=== PATIENT | male | born 1970 | race African-American/Black ===

== ENCOUNTER 2017-01-13 12:07 | Inpatient (IN) ==
--- NOTE | 2017-01-13 14:23 | XRay Report ---
Exam: XR abdomen 2V Date: 01/13/2017 1:32 PM Comparison: None Indication: Abdominal pain Findings: Lung bases are unremarkable. The liver and spleen are unremarkable Renal contours are mostly obscured The bony structures are intact No obvious pneumoperitoneum Nonspecific GI pattern. Phleboliths in the true pelvis. Impression: 1. Nonspecific GI pattern PROCEDURE INTERPRETED AT [facility] DEPARTMENT OF RADIOLOGY Final Report Signed by: Dr. Xavier Rush
--- NOTE | 2017-01-13 14:26 | Emergency Department Note ---
ICarlie Emily, am scribing for, and in the presence of, Ferny Greenwood MD 13: 25. Krystyna Swan Charles R, MD, personally performed the services described in this documentation, ascribed by Terri Sexton in my presence, and it is both accurate and complete [phone] . Arrival - Arrival Chief Complaint: Weakness Stated Complaint: coming for blood/ER already knows per [facility] ED Nursing Triage Note: c/o abnormal labs. Had labs drawn this am, H&H 5&16, platelets 5. c/o generalized weakness. +dyspnea on exertion. Reports was given one unit of blood on thursday. Mode of Arrival: Ambulatory Limitations: No Limitations Source: Patient Time Seen by Provider: 01/13/17 12:59 - History of Present Illness HPI Narrative: Pt is a 46 y/o male who came to ED for further evaluation of abnormal labs from this morning. Pt had labs drawn this morning with H&H of 5 &16, and platelets 5. Pt c/o generalized weakness, AGUIRRE, dizziness, but denies SOB. Pt reports he was given one unit of blood on Thursday and had one shot of ETOH yesterday. However, pt was a former heavy drinker. PMHx of leukemia with providers and treatment in [place], Cirrhosis, remote kidney stones, HTN. Pt has low grade fever of 99.3 in ED. Onset (ago): hour(s) Consistency: constant Severity: moderate Severity scale (1-10): 6 Quality: other (weakness) Allergies/Adverse Reactions: Allergies Allergy/AdvReac Type Severity Reaction Status Date / Time No Known Allergies Allergy Verified 01/13/17 12:21 Home Medications: Home Medications Medication Instructions Recorded Confirmed Type Allopurinol 300 mg PO BID 04/23/16 12/18/16 History Folic Acid Tab 1 mg PO DAILY 04/23/16 12/18/16 History Imatinib Mesylate 600 mg PO DAILY 04/23/16 12/18/16 History Lisinopril 5 mg PO DAILY #30 tablet 08/20/16 12/18/16 Rx Tramadol HCl [Tramadol Tab] 50 mg PO Q6H PRN 08/20/16 12/18/16 History Hydroxyurea [Hydroxyurea] 500 mg PO QID 01/13/17 History Review of System - Review of System 12 point system: reviewed and no additional remarkable complaints except as stated - Review of System Constitutional: Present: weakness (generalized), other (abnormal labs). Absent : chills, fever Respiratory: Absent: respiratory distress Cardiovascular: Present: dyspnea on exertion. Absent: chest pain Gastrointestinal: Absent: abdominal pain Skin: Absent: rash Neurological: Present: other (dizziness) Medical,Surgical,& Family Hx - Medical History Cardio: History of: Hypertension Rheumatology: History of;: Gout Genitourinary: History of: Kidney Stones (Remote) Gastrointestinal: History of: Liver Problems (Cirrhosis) Hematology: History of: Blood Disorders (Acute myelogenous leukemia diagnosed March 2016) Other: History of: Cancer (TAKING IMATINIB BUT DOES NOT KNOW WHAT FOR) - Family History Family History: Reports;: Family Diabetes, Family Heart Disease - Social History Smoking Status: Never smoker Frequency of Alcohol Use: Rarely Type of Drug Use: None Marital Status: Single Lives With:: Alone Functional capacity: independent ambulation Exam Vital Signs: Vital Signs Temperature 99.3 F 01/13/17 13:18 Pulse Rate 114 H 01/13/17 13:18 Respiratory Rate 22 01/13/17 13:18 Blood Pressure 127/83 01/13/17 13:18 O2 Sat by Pulse Oximetry 100 01/13/17 12:16 - General General appearance: alert, in no apparent distress - Head Head exam: Present: atraumatic, normocephalic - Eye Eye exam: Present: PERRL, EOMI, other (pale conjunctiva) - ENT ENT exam: Present: mucous membranes moist. Absent: mucous membranes dry - Neck Neck exam: Present: full ROM, trachea midline - Chest Chest inspection: Present: symmetric chest wall rise - Respiratory Respiratory exam: Present: rales (bibasilar rales). Absent: normal lung sounds bilaterally, accessory muscle use, respiratory distress - Cardiovascular Cardiovascular exam: Present: tachycardia, normal heart sounds - Abdominal Exam Abdominal exam: Present: soft, distention (nodular liver). Absent: tenderness, guarding - Rectal Exam Rectal exam: Present: heme (+) stool - Extremities Exam Extremities exam: Present: full ROM, pedal edema (+1 in lower extremities), other (pale nail bed ). Absent: tenderness - Neurological Exam Neurological exam: Present: alert, oriented X3, CN II-XII intact. Absent: motor sensory deficit - Psychiatric Psychiatric exam: Present: normal affect, normal mood - Skin Skin exam: Present: warm, dry Course - Consultations Consultation #1: Hospitalist will admit patient Time: 14:54 Results - Labs CBC & BMP: 01/13/17 14:21 Lab Results: I have reviewed the patients labs Labs: Laboratory Tests 01/13/17 14:21 WBC 2.6 L RBC 1.62 L Hgb 5.2 L* Hct 15.7 L* RDW 17.9 H Plt Count 4 L* MPV 7.9 L Will % (Auto) 1.1 L Neut # (Auto) 1.2 L Lymph # (Auto) 1.3 L Will # (Auto) 0.0 L - Diagnostic Findings Procedure: Abdominal x-ray: report reviewed by me (Nonspecific GI pattern), Chest x-ray: report reviewed by me (No acute cardiopulmonary process. 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
--- NOTE | 2017-01-13 14:27 | XRay Report ---
Exam: XR chest 1V portable Indication: Abdominal pain Comparison study: Prior chest radiograph 12/18/2016 Findings: The heart, mediastinum and bony structures are stable from prior. Nonspecific density within the central heart shadow is favored to represent a small hiatal hernia, which appears similar to prior. There is no focal consolidation, pneumothorax or pleural effusion identified. Impression: No acute cardiopulmonary process. No significant change from prior. PROCEDURE INTERPRETED AT [facility] DEPARTMENT OF RADIOLOGY Final Report Signed by: Manoj Rico
[2017-01-13 14:32] LABS: Eosinophils # 0.1 10*3/uL (0.0-0.87); Immature Granulocytes % 0.8 %; Immature Granulocytes Absolute 0.02 #; Lymphocytes # 1.3 10*3/uL (1.4-4.0); Mean Corpuscular HGB Conc 33.1 GM/DL (32-36); Mean Corpuscular Hemoglobin 32 PG (27-34); Mean Corpuscular Volume 96.9 FL (87-102); Mean Platelet Volume 7.9 FL (9.6-12.0); Monocytes % 1.1 % (1.7-12.7); Neutrophils # 1.2 10*3/uL (1.4-7.4); Neutrophils % 45.1 % (38.7-73.9); Red Blood Count 1.62 MC/CUMM (3.8-5.5); Red Cell Distribution Width 17.9 % (9.3-17.3); White Blood Count 2.6 T/CUMM (4-12)
[2017-01-13 14:39] LABS: Hematocrit 15.7 VOL% (42.0-52.0); Hemoglobin 5.2 GM/DL (14.0-18.0); Platelet Count 4 T/CUMM (130-400)
[2017-01-13 14:54] LABS: Ammonia 32 UMOL/L (11-32)
[2017-01-13 14:57] LABS: Lactic Acid 1.2 MMOL/L (0.4-2.0)
[2017-01-13 15:11] LABS: Alanine Aminotransferase 11 U/L (16-61); Albumin 2.9 G/DL (3.4-5.0); Alkaline Phosphatase 84 U/L (45-117); Amylase 88 U/L (25-115); Aspartate Amino Transferase 13 U/L (0-37); Blood Urea Nitrogen 7 MG/DL (7-18); Calcium 8.4 MG/DL (8.5-10.1); Glucose 91 MG/DL (74-106); Magnesium 1.5 MG/DL (1.8-2.4); Osmolality,Calculated 276.4 MOS/KG (273-304); Potassium 3.4 MMOL/L (3.5-5.1); Sodium 140 MMOL/L (136-145); Total Protein 7.1 G/DL (6.4-8.3); Troponin I Only < 0.015 NG/ML (0.00-0.045)
[2017-01-13] MEDS ORDERED: SODIUM CHLORIDE 0.9% 250 ML IV PRN ×2 (15:14→15:55)
[2017-01-13] MEDS ORDERED: DOCUSATE SODIUM 100 MG CAPSULE PO PRN (15:16)
[2017-01-13] MEDS ORDERED: ONDANSETRON 4 MG/2 ML VIAL IV PRN (15:16)
[2017-01-13] MEDS ORDERED: LORazepam 2 MG/1 ML VIAL IV PRN (15:20)
[2017-01-13 15:31] LABS: Lymphocytes 47 % (20-55); Segmented Neutrophils 51 % (50-85); Total Cells Counted 100
[2017-01-13 15:36] LABS: Anisocytosis 1+; Macrocytosis 1+; Platelet Estimate Decreased; Polychromasia Slight
--- NOTE | 2017-01-13 15:38 | Hospitalist History & Physical ---
<Kelsey Dysonda - Last Filed: 01/13/17 15:56> Assessment and Plan (1) Acute blood loss anemia Status: Acute Assessment and plan: Hemoglobin and hematocrit noted at 5.2 and 15.7. The patient reports that he has chronic anemia. He reports that he was last transfused on Thursday of last week at [facility] in [place]. He was told that he needed an additional unit of blood however he failed to return for his additional transfusion. We will type and screen and transfuse 2 units packed red blood cells. We will recheck CBC in a.m. Current Visit: Yes (2) History of alcohol abuse Status: Acute Assessment and plan: The patient reports that he is a daily drinker. He reports that he was diagnosed with liver cirrhosis 5 years ago. Despite this diagnosis, the patient reports that he drinks "shots of vodka "daily. He denies encountering issues when he does not drink. However, due to the fact that he drinks daily we will start the alcohol withdrawal protocol. We will monitor closely during the clinical encounter for impending delirium tremors. Current Visit: Yes (3) Thrombocytopenia Status: Acute Assessment and plan: Platelet count noted at 4. Upon review of the patient's medical record, the last clinical encounter was noted on January 09, 2017 in which the patient's platelet count was noted at 19. Additional encounters on January 01 and January 05; in which the platelet count was noted at 126 and 62. The patient' s thrombocytopenia is chronic in nature. DVT prophylactics is contraindicated secondary to thrombocytopenia. We will give 2 pack platelets and recheck CBC in AM. Current Visit: Yes (4) CML (chronic myelocytic leukemia) Status: Acute Assessment and plan: The patient reports that he is generally followed in [facility] at [facility] by Dr. Salinas for his CML. He reports that he takes Gleevec 1 tablet daily. We will resume Gleevec as ordered. Current Visit: No History of Present Illness Chief complaint: Profound weakness History of present illness: This is a chronically ill 46-year-old male that presented to the ED at [facility] this afternoon for the evaluation of weakness. The patient has a long and complex medical history significant for hypertension, liver cirrhosis, alcohol abuse, gouty arthritis, renal calculi, and acute myelogenous leukemia. The patient reported no significant surgical history at the time of encounter. Apparently, the patient was notified by his primary care physician of some abnormal labs. He had been seen here by his oncologist Dr. Salinas for blood work. He returned home and received a call from his physician instructed him to present to the ED. The patient reported an onset of weakness 2 weeks prior to presentation. He was seen recently by his oncologist Dr. Salinas in [place] and given blood products on last week. He was instructed to return the next day for additional blood products however, the patient failed to return. In addition, the patient reported dyspnea upon exertion, dizziness, however denied shortness of breath. The patient was assessed at the time of ED presentation. The patient was noted to have a low-grade temperature of 99.3. Labs were obtained which were significant for white blood cell count at 2.6, hemoglobin 5.2, hematocrit 15.7, platelet count 4, potassium 3.4, creatinine 0.60, calcium 8.4, magnesium 1.5, ALT 11, ammonia 32, albumin 2.9, alkaline phosphatase 84, and lipase 194. Chest x-ray was unremarkable for the presence of any acute cardiopulmonary processes. Abdominal x-ray was significant for nonspecific GI pattern. After brief discussion with both Dr. Greenwood and Dr. Reyes, the patient will be admitted to the hospitalist service for continuation of care. Due to the severity of the patient's hematological status, the patient will be placed in the critical care setting. Home medications have been reviewed and reconciled. CODE STATUS discussed; patient is FULL CODE. Home Medications Medication Instructions Recorded Confirmed Type Allopurinol 300 mg PO BID 04/23/16 01/13/17 History Folic Acid Tab 1 mg PO QAM 04/23/16 01/13/17 History Imatinib Mesylate 600 mg PO QAM 04/23/16 01/13/17 History Lisinopril 5 mg PO DAILY #30 tablet 08/20/16 01/13/17 Rx Tramadol HCl [Tramadol Tab] 50 mg PO Q6H PRN 08/20/16 01/13/17 History Hydroxyurea [Hydroxyurea] 500 mg PO QID 01/13/17 01/13/17 History Allergies Allergy/AdvReac Type Severity Reaction Status Date / Time No Known Allergies Allergy Verified 01/13/17 12:21 Medical,Surgical,& Family Hx - Medical History Cardio: History of: Hypertension Rheumatology: History of;: Gout Genitourinary: History of: Kidney Stones (Remote) Gastrointestinal: History of: Liver Problems (Cirrhosis) Hematology: History of: Blood Disorders (Acute myelogenous leukemia diagnosed March 2016) Other: History of: Cancer (TAKING IMATINIB BUT DOES NOT KNOW WHAT FOR) - Family History Family History: Reports;: Family Diabetes, Family Heart Disease - Social History Smoking Status: Never smoker Have you smoked in the last 12 months: No Frequency of Alcohol Use: Frequently Type of Drug Use: None Marital Status: Single Lives With:: Alone Functional capacity: independent ambulation 12 point system: reviewed and no additional remarkable complaints except as stated Exam - Constitutional Vitals: Period Temp Pulse Resp BP Sys/Dunn Pulse Ox Last 24 Hr 99.3 F-99.3 F 114-114 22-22 127-127/83-88 100 General appearance: normal weight - Head Head exam: Present: normal inspection, normocephalic, atraumatic - Eye Eye exam: Present: EOMI, scleral icterus, other (Conjunctival jaundice noted) Pupils: Present: SAMUEL, normal accommodation - ENT ENT exam: Present: normal exam, normal external ear exam, normal oropharynx - Neck Neck exam: Present: normal inspection. Absent: lymphadenopathy, meningismus, tenderness, thyromegaly - Respiratory Respiratory exam: Present: clear to auscultation bilaterally. Absent: rales, rhonchi, stridor, wheezes - Cardiovascular Cardiovascular exam: Present: tachycardia. Absent: carotid bruit, diastolic murmur, gallop, rubs, systolic murmur - GI/Abdominal GI/Abdominal exam: Present: normal bowel sounds, distended. Absent: tenderness , rebound - Extremities Exam Extremities exam: Present: normal inspection, normal capillary refill, full ROM. Absent: edema - Back Exam Back exam: Present: normal inspection - Neurological Exam Neurological exam: Present: alert, oriented X3, CN II-XII intact - Psychiatric Psychiatric exam: Present: normal affect, normal mood - Skin Skin exam: Present: normal color, warm, dry Results - Labs CBC & BMP: 01/13/17 14:21 01/13/17 14:21 Lab Results: I have reviewed the past 24 hour labs Quality Measures - VTE Contraindication to Pharmacological VTE Prophylaxis: Thrombocytopenia <Albin Reyes - Last Filed: 01/13/17 16:10> Assessment and Plan (1) CML (chronic myelocytic leukemia) Status: Acute Assessment and plan: We will transfuse, and hope to discharge afterward. He will receive red cells and platelets. I am seeing this patient in colllaboration with the advanced family practice doctor. I performed the essential elements of the history and examination, and agree with the evaluation as entered, except as noted above. This note was completed using [employer] voice recognition software. 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 Current Visit: No History of Present Illness History of present illness: Mr. Emerson is a 46 year old male History is as described above. The patient was apparently diagnosed as having CML in [place]. He has been receiving appropriate therapy for this. He has been pancytopenic, and has been receiving transfusions intermittently. He received 1 unit of red cells in [place] on 01/09, and then could not get back over therefore follow-up transfusion. He reports exertional dyspnea. He has been having some dizziness. He also reports a history of alcoholic cirrhosis, and continues to consume vodka several times per week. Based on the peripheral smear, he does not appear to be in blast crisis at this time. Exam - Constitutional Vitals: Period Temp Pulse Resp BP Sys/Dunn Pulse Ox Last 24 Hr 98.0 F-99.3 F 98-114 22-22 127-144/83-94 100-100 The patient has a regular cardiac rhythm with a soft systolic murmur. His chest is fairly clear. His abdomen is protuberant without any obvious ascites. He has a few millimeters of edema bilaterally. I do not see any evidence of hemorrhage at this time. Results - Labs CBC & BMP: 01/13/17 14:21 01/13/17 14:21
[2017-01-13] MEDS ORDERED: MAGNESIUM SULF RIDER 2 GM in PREMIX 1 EACH IV STA ×2 (16:01→17:15)
[2017-01-13 17:07] LABS: Apearance,Urine CLOUDY (Clear); Bilirubin,Urine Negative (Negative); Blood, Urine Large mg/dL (Negative); Glucose,Urine (UA) Negative (Negative); Ketones,Urine Negative (Negative); Mucus,Urine Few /LPF (Occasional); Nitrite,Urine Negative (Negative); Protein,Urine 30 MG/DL; RBC,Urine 685 /HPF (0-4); Squamous Epithelial Cell,Urine Occasional /HPF (0-10); Urine Color Yellow (Yellow); Urine Specific Gravity 1.016 (1.001-1.035); WBC,Urine 6 /HPF (0-6)
[2017-01-13] MEDS: SODIUM CHLORIDE 0.9% 1,000 ML IV SCH (17:07)
[2017-01-13 17:14] LABS: Barbiturates Screen,Urine Negative (Negative); Benzodiazepines Screen,Urine Negative (Negative); Cannabinoid Screen,Urine Negative (Negative); Opiate Screen,Urine Negative (Negative); Phencyclidine Screen,Urine Negative (Negative)
[2017-01-13] MEDS: HYDROXYUREA 500 MG CAPSULE PO SCH ×2 (17:20→21:39)
[2017-01-13 19:23] LABS: Eosinophils # 0.1 10*3/uL (0.0-0.87); Eosinophils % 2.5 % (0.00-10.9); Hematocrit 15.6 VOL% (42.0-52.0); Immature Granulocytes % 0.4 %; Immature Granulocytes Absolute 0.01 #; Lymphocytes # 1.4 10*3/uL (1.4-4.0); Lymphocytes % 48.6 % (21.2-54.2); Mean Corpuscular Hemoglobin 33 PG (27-34); Mean Corpuscular Volume 95.7 FL (87-102); Monocytes % 1.4 % (1.7-12.7); Neutrophils # 1.3 10*3/uL (1.4-7.4); Neutrophils % 47.1 % (38.7-73.9); Platelet Count 4 T/CUMM (130-400); Red Blood Count 1.63 MC/CUMM (3.8-5.5); Red Cell Distribution Width 17.8 % (9.3-17.3); White Blood Count 2.8 T/CUMM (4-12)
[2017-01-13 19:28] LABS: Hemoglobin 5.3 GM/DL (14.0-18.0)
[2017-01-13 20:51] LABS: Lymphocytes 47 % (20-55); Segmented Neutrophils 51 % (50-85); Total Cells Counted 100
[2017-01-13 20:52] LABS: Anisocytosis 1+; Macrocytosis 1+; Platelet Estimate Decreased; Polychromasia Slight
[2017-01-13] MEDS: ALLOPURINOL 300 MG TABLET PO SCH (21:39)
[2017-01-14] MEDS: SODIUM CHLORIDE 0.9% 1,000 ML IV SCH ×2 (04:13→17:19)
[2017-01-14 05:55] LABS: Eosinophils # 0.1 10*3/uL (0.0-0.87); Eosinophils % 2.8 % (0.00-10.9); Hematocrit 18.7 VOL% (42.0-52.0); Immature Granulocytes % 0.5 %; Immature Granulocytes Absolute 0.01 #; Lymphocytes # 1.2 10*3/uL (1.4-4.0); Lymphocytes % 57.4 % (21.2-54.2); Mean Corpuscular HGB Conc 33.7 GM/DL (32-36); Mean Corpuscular Hemoglobin 31 PG (27-34); Mean Platelet Volume 13.5 FL (9.6-12.0); Monocytes % 0.9 % (1.7-12.7); Neutrophils # 0.8 10*3/uL (1.4-7.4); Neutrophils % 38.4 % (38.7-73.9); Red Blood Count 2.01 MC/CUMM (3.8-5.5); Red Cell Distribution Width 16.9 % (9.3-17.3); White Blood Count 2.2 T/CUMM (4-12)
[2017-01-14 06:01] LABS: Hemoglobin 6.3 GM/DL (14.0-18.0)
[2017-01-14 06:02] LABS: Platelet Count 18 T/CUMM (130-400)
[2017-01-14 06:11] LABS: INR 1.1
[2017-01-14 06:25] LABS: Eosinophils 4 % (0-10); Lymphocytes 51 % (20-55); Platelet Estimate Decreased; Segmented Neutrophils 45 % (50-85); Total Cells Counted 100
[2017-01-14 06:26] LABS: Hypochromasia 1+; Macrocytosis Slight; Ovalocytes Slight
[2017-01-14 06:29] LABS: Albumin 2.5 G/DL (3.4-5.0); Bilirubin,Total 1.4 MG/DL (0.2-1.0); Calcium 7.9 MG/DL (8.5-10.1); Magnesium 1.9 MG/DL (1.8-2.4); Osmolality,Calculated 274.5 MOS/KG (273-304); Potassium 3.3 MMOL/L (3.5-5.1); Total Protein 6.2 G/DL (6.4-8.3)
[2017-01-14] MEDS ORDERED: SODIUM CHLORIDE 0.9% 250 ML IV PRN (08:10)
--- NOTE | 2017-01-14 08:15 | Hospitalist Progress Note ---
Assessment and Plan (1) CML (chronic myelocytic leukemia) Status: Acute Assessment and plan: Impression: 1. CML with symptomatic anemia and thrombocytopenia Plan: Transfuse 1 more unit of red cells. Transfer out of ICU. Hope to discharge today or tomorrow. This note was completed using [employer] voice recognition software. There may be inspector production plastic parts errors as a result. Current Visit: No Hospitalist: Subjective Interval history: Follow-up CML with symptomatic anemia and thrombocytopenia. The patient says that he feels better. He has tolerated a diet. It appears that he has received 1 bag of platelets and 2 units of red cells. His hemoglobin has gone up to about 6. He will need 1 more unit of blood. He does not know his goal for transfusion. Exam - Constitutional Vitals: Period Temp Pulse Resp BP Sys/Dunn Pulse Ox Last 24 Hr 97.2 F-99.3 F 80-114 14-28 114-148/76-99 98-100 Vital signs are noted above. Heart is regular with no murmur. Chest is clear with no rales or wheezes. Abdomen is protuberant with only minimal tenderness. He has a millimeter or 2 of edema. He is awake and alert Results - Labs CBC & BMP: 01/14/17 05:16 01/14/17 05:16 Lab Results: I have reviewed the past 24 hour labs Quality Measures - VTE Contraindication to Pharmacological VTE Prophylaxis: Thrombocytopenia
[2017-01-14] MEDS: LISINOPRIL 5 MG TABLET PO SCH (08:20)
[2017-01-14] MEDS: THIAMINE 100 MG TABLET PO SCH (08:20)
[2017-01-14] MEDS: HYDROXYUREA 500 MG CAPSULE PO SCH ×4 (08:20→21:54)
[2017-01-14] MEDS: FOLIC ACID 1 MG TABLET PO SCH (08:20)
[2017-01-14] MEDS: PANTOPRAZOLE 40 MG TABLET PO SCH (08:20)
[2017-01-14] MEDS: ALLOPURINOL 300 MG TABLET PO SCH ×2 (08:39→21:54)
[2017-01-14] MEDS ORDERED: IMATINIB MESYLATE 600 MG PO SCH (09:00)
[2017-01-14] MEDS ORDERED: SUFentanil 250 MCG/5 ML AMP ONE ×2 (14:18→14:19)
[2017-01-14] MEDS ORDERED: ePHEDrine 50 MG/ML AMP ONE (14:19)
[2017-01-14] MEDS ORDERED: MIDAZOLAM 10 MG/2 ML VIAL ONE (14:19)
[2017-01-14 18:14] LABS: Hematocrit 24.4 VOL% (42.0-52.0); Hemoglobin 8.2 GM/DL (14.0-18.0)
[2017-01-15] MEDS: SODIUM CHLORIDE 0.9% 1,000 ML IV SCH ×2 (07:22→19:36)
--- NOTE | 2017-01-15 07:43 | Discharge Summary ---
<Montse Dyson - Last Filed: 01/15/17 07:34> Hospital Course - Hospital Course Hospital Course: This is a chronically ill 46-year-old male that presented to the ED at [facility] on the afternoon of January 13, 2017 for the evaluation of weakness. The patient reported a long and complex medical history significant for hypertension, liver cirrhosis, alcohol abuse, gouty arthritis, renal calculi, and acute myelogenous leukemia. The patient reported no significant surgical history at the time of encounter. Apparently, the patient was notified by his primary care physician of some abnormal labs. He had been seen here by his oncologist Dr. Salinas for blood work. He returned home and received a call from his physician instructed him to present to the ED. The patient reported an onset of weakness 2 weeks prior to presentation. He was seen recently by his oncologist Dr. Salinas in [place] and given blood products on last week. He was instructed to return the next day for additional blood products however, the patient failed to return. In addition, the patient reported dyspnea upon exertion, dizziness, however denied shortness of breath. The patient was assessed at the time of ED presentation. The patient was noted to have a low-grade temperature of 99.3. Labs were obtained which were significant for white blood cell count at 2.6, hemoglobin 5.2, hematocrit 15.7, platelet count 4, potassium 3.4, creatinine 0.60, calcium 8.4, magnesium 1.5, ALT 11, ammonia 32, albumin 2.9, alkaline phosphatase 84, and lipase 194. Chest x-ray was unremarkable for the presence of any acute cardiopulmonary processes. Abdominal x-ray was significant for nonspecific GI pattern. The patient was subsequently admitted to the critical care unit for continuation of care. The patient was placed in the critical care setting. Multiple blood products were transfused. The patient's condition gradually improved. The patient was transferred to the general medical surgical floor on January 14, 2017. The patient's condition is stable. The patient's hemoglobin and hematocrit are noted at 8.2/24.4. The patient has not experienced any significant overnight events. Today, we feel that he is indeed appropriate for discharge to follow- up with his primary care physician and oncologist as directed. I have seen and examined Mr Emerson and agree with his discahrge summary above. I have reconciled his meds and coordinate dcare with Dr Guardado. Mr Idania's discharge was held yesterday for another platelet transfusion. He is confused about what he is supposed to be taking for his CML following a BM biopsy last month at [place]. He will see Dr Salinas as scheduled this month. He will have blood drawn on Thursday as he usually does and he says he will go to [place] if he needs more transfusions so he can get to the bottom of what his treatment should be at this point. Time to discharge for planning, care coordination, medicine reconciliation, documentation is 38 minutes. Diagnosis - Discharge Diagnosis (1) Acute blood loss anemia Status: Acute (2) History of alcohol abuse Status: Acute (3) Thrombocytopenia Status: Acute (4) CML (chronic myelocytic leukemia) Status: Acute Specialty Discharge - Follow Up or Referrals Follow up with: Brad Almaraz [Other] (Follow up with your Oncologist in [place] as scheduled.) Discharge Plan - Discharge Data Disposition: Disch To Home/Self Care - Discharge Medications New Thiamine Tab [Vitamin B1 Tab] 100 mg PO DAILY tablet Continue Folic Acid Tab 1 mg PO QAM Allopurinol 300 mg PO BID Tramadol HCl [Tramadol Tab] 50 mg PO Q6H PRN PRN Reason: Pain Lisinopril 5 mg PO DAILY #30 tablet Hydroxyurea 500 mg PO QID Discontinued Imatinib Mesylate 600 mg PO QAM - Follow Up or Referral Follow Up: Brad Almaraz [Other] (Follow up with your Oncologist in [place] as scheduled.) - Forms/Instructions Exam - Constitutional Vitals: Period Temp Pulse Resp BP Sys/Dunn Pulse Ox Last 24 Hr 97.5 F-98.6 F 76-95 17-20 123-150/80-96 97-100 Discharge Results Procedures and tests throughout hospitalization: Pending Orders 01/13/17 Urine Culture Routine 01/13/17 08:26 Blood Culture Stat 01/13/17 16:23 MRSA Surveillence, Inf Control Routine Labs on day of discharge: Labs from last 24 hours 01/15/17 01/14/17 01/14/17 07:55 18:02 05:16 WBC 2.3 L RBC 2.57 L D Hgb 8.0 L 8.2 L D Hct 23.7 L 24.4 L MCV 92.2 MCH 31 MCHC 33.8 RDW 16.6 Plt Count 6 L* D Neut % (Auto) 46.4 Lymph % (Auto) 47.6 Rooks % (Auto) 0.4 L Eos % (Auto) 5.2 Baso % (Auto) 0.0 Neut # (Auto) 1.1 L Lymph # (Auto) 1.1 L Rooks # (Auto) 0.0 L Eos # (Auto) 0.1 Baso # (Auto) 0.0 Total Counted 100 Immature Gran % 0.4 Nucleated RBC % 0.0 Immature Gran # 0.01 Segmented Neutrophils 78 Lymphocytes 21 Monocytes 1 L Nucleated RBCs # 0.00 Platelet Estimate Decreased Immature Plt Fraction 2.0 Hypochromasia 1+ Macrocytosis 1+ Blood Type Cancelled Antibody Screen Cancelled Crossmatch See Detail Blood Bank Comment Cancelled Preliminary micro results at discharge 01/13/17 08:26 Blood Culture - Preliminary Blood No growth at 1 day 01/13/17 08:26 Blood Culture - Preliminary Blood No growth at 1 day 01/13/17 Unknown Urine Culture - Preliminary Urine,Clean Catch Gram Negative Rods Gram Positive Cocci DS: Provider Date of admission: 01/13/17 15:13 Primary care physician: . No PCP Attending physician on admission: Albin Reyes MD Consults: 01/13/17 16:43 Consult to Dietitian [CONS] Routine Reason for Dietitian: Dietary Consult Discharging clinician: Montse Dyson CNP <Sandhya Stiles - Last Filed: 01/16/17 11:07> Diagnosis - Discharge Diagnosis (1) Leukopenia Status: Acute (2) Anemia Status: Acute (3) Alcoholic cirrhosis Status: Acute (4) CML (chronic myelocytic leukemia) Status: Acute (5) Thrombocytopenia Status: Acute (6) Hematuria Status: Acute Discharge Plan - Discharge Data Condition at Discharge: Stable Discharge Diet: heart healthy Activity: resume usual activities as tolerated Exam - Constitutional General appearance: normal weight, no acute distress - Eye Eye exam: Present: EOMI. Absent: scleral icterus - Respiratory Respiratory exam: Present: clear to auscultation bilaterally - Cardiovascular Cardiovascular exam: Present: regular rate and rhythm - GI/Abdominal GI/Abdominal exam: Present: normal bowel sounds, soft. Absent: tenderness - Extremities Exam Extremities exam: Absent: edema
[2017-01-15 08:05] LABS: Eosinophils # 0.1 10*3/uL (0.0-0.87); Eosinophils % 5.2 % (0.00-10.9); Hematocrit 23.7 VOL% (42.0-52.0); Immature Granulocytes % 0.4 %; Immature Granulocytes Absolute 0.01 #; Lymphocytes # 1.1 10*3/uL (1.4-4.0); Lymphocytes % 47.6 % (21.2-54.2); Mean Corpuscular HGB Conc 33.8 GM/DL (32-36); Mean Corpuscular Hemoglobin 31 PG (27-34); Mean Corpuscular Volume 92.2 FL (87-102); Monocytes % 0.4 % (1.7-12.7); Neutrophils # 1.1 10*3/uL (1.4-7.4); Neutrophils % 46.4 % (38.7-73.9); Red Blood Count 2.57 MC/CUMM (3.8-5.5); Red Cell Distribution Width 16.6 % (9.3-17.3); White Blood Count 2.3 T/CUMM (4-12)
[2017-01-15 08:14] LABS: Platelet Count 6 T/CUMM (130-400)
[2017-01-15] MEDS ORDERED: SODIUM CHLORIDE 0.9% 250 ML IV PRN (08:26)
[2017-01-15 08:35] LABS: Hypochromasia 1+; Lymphocytes 21 % (20-55); Macrocytosis 1+; Platelet Estimate Decreased; Segmented Neutrophils 78 % (50-85); Total Cells Counted 100
[2017-01-15] MEDS: FOLIC ACID 1 MG TABLET PO SCH (08:35)
[2017-01-15] MEDS: PANTOPRAZOLE 40 MG TABLET PO SCH (08:35)
[2017-01-15] MEDS: HYDROXYUREA 500 MG CAPSULE PO SCH ×4 (08:35→21:52)
[2017-01-15] MEDS: LISINOPRIL 5 MG TABLET PO SCH (08:35)
[2017-01-15] MEDS: THIAMINE 100 MG TABLET PO SCH (08:35)
[2017-01-15] MEDS: ALLOPURINOL 300 MG TABLET PO SCH ×2 (08:36→21:52)
[2017-01-15] MEDS ORDERED: GLEEVEC 400 MG PO SCH (09:00)
--- NOTE | 2017-01-15 13:04 | Physician Query Form ---
CLICK EDIT DOCUMENT TO SELECT QUERY ANSWER --> OK --> SIGN Radha Parker RN Clinical Guidance Counselor W) [phone] (f) [phone] [email or web address]: Make your selection(s) from the choices in EACH section by typing an "x" and enter comments in the comment section. Please use your independent medical judgment in providing your response. This request does not imply that any particular answer is desired or expected. CLINICAL INDICATORS: (Providers should not edit this section) Based on documentation of serum WBC of 2.8, RBC 1.63, and PLT 4. Transfused 3 units PRBC, 1 unit PLT. 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" Based on the above, could you clarify the appropriate diagnosis, if significant , that supports the above abnormalities and additional evaluation, monitoring, and/or treatment rendered: ( x) Treated for pancytopenia ( ) NOT Treated for pancytopenia ( ) Other, please specify: ( ) Clinically unable to determine COMMENTS: PLEASE ALSO DOCUMENT RESPONSE IN PROGRESS NOTES AND/OR DISCHARGE SUMMARY Use of terms such as suspected, likely, or probable (associated with a specific diagnosis that is being evaluated, monitored, or treated as if it exists) are acceptable and can be restated in the discharge summary if not ruled out. MTDD
[2017-01-15] MEDS ORDERED: cefTRIAXone 1,000 MG in SODIUM CHLORIDE 0.9% 100 ML IV SCH (14:30)
--- NOTE | 2017-01-15 14:39 | Hospitalist Progress Note ---
Assessment and Plan (1) CML (chronic myelocytic leukemia) Status: Acute Assessment and plan: 1)CML with anemia leukopenia and thrombocytopenia- sent from his oncologists office in [place] for transfusions because counts low on check there. Dr Salinas has not called me back yet. Transfuse platelets again today. H&H improved to 8/24 after PRBCs. [facility]- it has developed over the last month or so. I discussed this with Dr Guardado who is conference interpreter. He recommended stopping Gleevec, checking fibrinogen and haptoglobin and continuing to try to get in touch with his oncologist at [facility]. Dr Salinas has not returned my call at this point. If they cannot/will not take him in transfer then we may need bone marrow biopsy in the morning to eval for transition to acute leukemia v drug effect. 2)hematuria- repeat UA and consult urology 3)UTI with GPC and GNR in urine- start ceftriaxone and ampicillin pending UCx results. Current Visit: No (2) Hematuria Status: Acute Current Visit: Yes (3) Alcoholic Status: Acute Current Visit: No (4) Alcoholic cirrhosis Status: Acute Current Visit: No (5) Thrombocytopenia Status: Acute Current Visit: Yes Hospitalist: Subjective Interval history: Mr Cage wants to go home but his platelets have fallen again to 6000, and he has GNR and GPC in his urine. also notable is the hematuria he had on UA on admission. He will stay tonight so he can get his platelets (it has taken them a while to get them and they have not yet been given). Antibiotics started, consult urology for hematuria. He denies pain, shortness of breath. No hallucinations or DT symptoms. Exam - Constitutional Vitals: Period Temp Pulse Resp BP Sys/Dunn Pulse Ox Last 24 Hr 97.5 F-98.6 F 76-97 18-20 130-150/80-96 97-100 General appearance: normal weight, no acute distress - Eye Eye exam: Present: EOMI. Absent: scleral icterus - Respiratory Respiratory exam: Present: clear to auscultation bilaterally - Cardiovascular Cardiovascular exam: Present: regular rate and rhythm - GI/Abdominal GI/Abdominal exam: Present: normal bowel sounds, soft. Absent: tenderness - Extremities Exam Extremities exam: Absent: edema Results - Labs CBC & BMP: 01/15/17 07:55 01/14/17 05:16 Lab Results: I have reviewed the past 24 hour labs Quality Measures - VTE Contraindication to Pharmacological VTE Prophylaxis: Thrombocytopenia Specialty Discharge - Follow Up or Referrals Follow up with: Brad Almaraz [Other] (Follow up with your Oncologist in [place] as scheduled.)
[2017-01-15] MEDS: AMPICILLIN INJ 500 MG in SODIUM CHLORIDE 0.9% 100 ML IV SCH ×2 (16:35→21:53)
[2017-01-15 17:19] LABS: Apearance,Urine Slightly Hazy (Clear); Bilirubin,Urine Negative (Negative); Blood, Urine Large mg/dL (Negative); Glucose,Urine (UA) Negative (Negative); Ketones,Urine Negative (Negative); Mucus,Urine Occasional /LPF (Occasional); Nitrite,Urine Negative (Negative); Protein,Urine Negative; RBC,Urine 1261 /HPF (0-4); Urine Color Yellow (Yellow); Urine Specific Gravity 1.016 (1.001-1.035); WBC,Urine 4 /HPF (0-6)
[2017-01-16] MEDS: AMPICILLIN INJ 500 MG in SODIUM CHLORIDE 0.9% 100 ML IV SCH ×2 (03:38→08:34)
[2017-01-16] MEDS: SODIUM CHLORIDE 0.9% 1,000 ML IV SCH (03:41)
[2017-01-16] MEDS: PANTOPRAZOLE 40 MG TABLET PO SCH (08:35)
[2017-01-16] MEDS: FOLIC ACID 1 MG TABLET PO SCH (08:35)
[2017-01-16] MEDS: ALLOPURINOL 300 MG TABLET PO SCH (08:35)
[2017-01-16] MEDS: THIAMINE 100 MG TABLET PO SCH (08:35)
[2017-01-16] MEDS: HYDROXYUREA 500 MG CAPSULE PO SCH (08:35)
[2017-01-16] MEDS: LISINOPRIL 5 MG TABLET PO SCH (08:36)
--- NOTE | 2017-01-16 08:38 | Oncology Consult Note ---
History of Present Illness History of present illness: Mr. Emerson is a 46 year old male with a history of CML dating back to the fall 2015 who is managed at [facility]. He is currently here with pancytopenia. He does not appear toxic and states he feels well. He states that [facility] has been aware that his blood counts have been low and he actually underwent a bone marrow biopsy approximately 4 weeks ago there. He does not know the results of this. He would like to go home. He is pancytopenic and his platelet count was 6 yesterday. He received a transfusion of platelets last night. I think he should be ready for discharge home today pending his CBC results. I told him to notify [facility] for follow-up. He continues to drink alcohol but states it is less than previous. He likely has some underlying cirrhosis which is also contributing to his pancytopenia. There is nothing to add from hematology here locally at this time. Home Medications Medication Instructions Recorded Confirmed Type Allopurinol 300 mg PO BID 04/23/16 01/13/17 History Folic Acid Tab 1 mg PO QAM 04/23/16 01/13/17 History Imatinib Mesylate 600 mg PO QAM 04/23/16 01/13/17 History Lisinopril 5 mg PO DAILY #30 tablet 08/20/16 01/13/17 Rx Tramadol HCl [Tramadol Tab] 50 mg PO Q6H PRN 08/20/16 01/13/17 History Hydroxyurea 500 mg PO QID 01/13/17 01/13/17 History Thiamine Tab [Vitamin B1 Tab] 100 mg PO DAILY tablet 01/15/17 Rx Allergies Allergy/AdvReac Type Severity Reaction Status Date / Time No Known Allergies Allergy Verified 01/13/17 12:21 Medical,Surgical,& Family Hx - Medical History Cardio: History of: Hypertension No history of: Aneurysm, Cardiac Dysrhythmia, Cerebrovascular Disease, Congenital Heart Disease, CHF, CAD, NH, Pacemaker, PVD, Valvular Heart Disease Psychological: No history of: Anxiety Disorders, Behavior Problems, Bipolar Disorder, Depression, Previous Suicide Attempt, Psychiatric/Substance Abuse Tx, Schizophrenia Endocrine: History of: Diabetes Mellitus (NIDDM) No history of: Dyslipidemia, Thyroid Disorder Rheumatology: History of;: Gout Respiratory: No history of: Asthma, Bronchitis, COPD, Intubation, Obstructive Sleep Apnea , Pulmonary Embolism, Pulmonary Hypertension, Pneumonia, Lung Cancer Genitourinary: History of: Kidney Stones (Remote) No history of: Bladder Problem Gastrointestinal: History of: GERD, Liver Problems (Cirrhosis) No history of: Clostridium Difficile, Crohn's Disease, Esophageal Varices, Gastrointestinal Bleed, Hemorrhoids, Hematochezia, Hepatitis, Pancreatitis, Gastrointestinal Cancer Hematology: History of: Anemia, Blood Disorders (Acute myelogenous leukemia diagnosed March 2016) No history of: Blood Transfusion Reaction, Sickle Cell Disease Reproductive: No histroy: Sexually Transmitted Disease Other: History of: Cancer (TAKING IMATINIB BUT DOES NOT KNOW WHAT FOR) No history of: Anesthesia Reactions - Surgical History HEENT Surgeries: Surgical HX of: Tonsilectomy & Adenoidectomy Abdominal Surgeries: Patient denies: Appendectomy, Cholecystectomy, Gastric Bypass Surgery, Hernia Repair Reproductive Surgeries: Patient denies;: Vasectomy - Family History Family History: Reports;: Family Diabetes, Family Heart Disease - Social History Smoking Status: Never smoker Frequency of Alcohol Use: Frequently Type of Drug Use: None Exam - Constitutional Vitals: Period Temp Pulse Resp BP Sys/Dunn Pulse Ox Last 24 Hr 97.6 F-100.3 F 81-98 18-20 129-152/73-96 96-99 Results - Labs CBC & BMP: 01/15/17 07:55 01/14/17 05:16 Quality Measures - VTE Contraindication to Pharmacological VTE Prophylaxis: Thrombocytopenia Specialty Discharge - Follow Up or Referrals Follow up with: Brad Almaraz [Other] (Follow up with your Oncologist in [place] as scheduled.)
[2017-01-16 08:46] LABS: Basophils % 0.5 % (0.0-0.8); Eosinophils # 0.1 10*3/uL (0.0-0.87); Eosinophils % 5.8 % (0.00-10.9); Hematocrit 23.1 VOL% (42.0-52.0); Hemoglobin 7.9 GM/DL (14.0-18.0); Immature Granulocytes % 1.5 %; Immature Granulocytes Absolute 0.03 #; Lymphocytes # 0.9 10*3/uL (1.4-4.0); Lymphocytes % 44.7 % (21.2-54.2); Mean Corpuscular HGB Conc 34.2 GM/DL (32-36); Mean Corpuscular Hemoglobin 32 PG (27-34); Mean Corpuscular Volume 92.4 FL (87-102); Mean Platelet Volume 9.7 FL (9.6-12.0); Monocytes % 0.5 % (1.7-12.7); Red Cell Distribution Width 16.2 % (9.3-17.3); White Blood Count 2.1 T/CUMM (4-12)
[2017-01-16 08:56] LABS: Platelet Count 16 T/CUMM (130-400)
[2017-01-16 09:25] LABS: Eosinophils 3 % (0-10); Hypochromasia 1+; Lymphocytes 33 % (20-55); Platelet Estimate Decreased; Segmented Neutrophils 64 % (50-85); Total Cells Counted 100
[2017-01-16 10:00] VITALS: BP 147/87
== END 2017-01-16 11:45 | disposition home or self-care (01) | DRG 691 ==
LOC: N.ED 12:07 → N.EDINP 15:13 → SUATTDRO 15:13 → N.CC 15:45 → N.4E 01-14 10:32
PROVIDERS: ADMIT Internal Medicine Geriatric Medicine; ATTEND Internal Medicine

== ENCOUNTER 2017-05-27 18:20 | Inpatient (IN) ==
[2017-05-27] MEDS ORDERED: SODIUM CHLORIDE 0.9% 1,000 ML IV STA (19:23)
[2017-05-27 19:34] LABS: Basophils % 0.3 % (0.0-0.8); Hemoglobin 8.3 GM/DL (14.0-18.0); Immature Granulocytes % 1.5 %; Immature Granulocytes Absolute 0.06 #; Lymphocytes # 1.5 10*3/uL (1.4-4.0); Lymphocytes % 37.5 % (21.2-54.2); Mean Corpuscular HGB Conc 33.2 GM/DL (32-36); Mean Corpuscular Hemoglobin 33 PG (27-34); Monocytes # 0.1 10*3/uL (0.11-0.8); Monocytes % 2.3 % (1.7-12.7); Neutrophils # 2.3 10*3/uL (1.4-7.4); Neutrophils % 58.4 % (38.7-73.9); Red Cell Distribution Width 15.3 % (9.3-17.3); White Blood Count 3.9 T/CUMM (4-12)
[2017-05-27 19:42] LABS: Platelet Count 4 T/CUMM (130-400)
[2017-05-27 19:54] LABS: INR 1.1; PT Patient Result 11.5 SECS; Partial Thromboplastin Time 30.8 SECS (0-40)
[2017-05-27 20:05] LABS: Albumin 3.5 G/DL (3.4-5.0); Bilirubin,Total 0.6 MG/DL (0.2-1.0); Osmolality,Calculated 263.7 MOS/KG (273-304); Potassium 2.9 MMOL/L (3.5-5.1); Total Protein 8.4 G/DL (6.4-8.3)
[2017-05-27 21:07] LABS: Band Neutrophils 1 % (0-10); Lymphocytes 35 % (20-55); Metamyelocytes 1 %; Platelet Estimate Decreased; Segmented Neutrophils 60 % (50-85); Total Cells Counted 100
[2017-05-27] MEDS ORDERED: cefTRIAXone 1,000 MG in SYRINGE 1 EACH IV SCH (23:00)
[2017-05-27] MEDS ORDERED: SODIUM CHLORIDE 0.9% 1,000 ML IV PRN (23:29)
[2017-05-27] MEDS ORDERED: ONDANSETRON 4 MG/2 ML VIAL IV PRN (23:29)
[2017-05-27] MEDS ORDERED: POTASSIUM CHLORIDE 20 MEQ TABLET PO ONE (23:40)
[2017-05-27] MEDS ORDERED: MAGNESIUM OXIDE 400 MG TABLET PO ONE (23:40)
[2017-05-28] MEDS: SODIUM CHLOR 0.9% KCL 40 MEQ 40 MEQ/1,000 ML BAG IV SCH ×3 (01:02→18:41)
[2017-05-28 03:04] LABS: Basophils % 0.3 % (0.0-0.8); Hematocrit 20.2 VOL% (42.0-52.0); Hemoglobin 6.6 GM/DL (14.0-18.0); Immature Granulocytes % 1.5 %; Immature Granulocytes Absolute 0.05 #; Lymphocytes # 1.2 10*3/uL (1.4-4.0); Lymphocytes % 36.1 % (21.2-54.2); Mean Corpuscular HGB Conc 32.7 GM/DL (32-36); Mean Corpuscular Hemoglobin 33 PG (27-34); Mean Platelet Volume 11.3 FL (9.6-12.0); Monocytes # 0.1 10*3/uL (0.11-0.8); Monocytes % 2.4 % (1.7-12.7); Neutrophils % 59.7 % (38.7-73.9); Red Cell Distribution Width 15.5 % (9.3-17.3); White Blood Count 3.3 T/CUMM (4-12)
[2017-05-28 03:12] LABS: Platelet Count 60 T/CUMM (130-400)
[2017-05-28 03:29] LABS: Calcium 8.5 MG/DL (8.5-10.1); Osmolality,Calculated 267.4 MOS/KG (273-304); Potassium 3.1 MMOL/L (3.5-5.1)
[2017-05-28 03:46] LABS: Band Neutrophils 4 % (0-10); Lymphocytes 39 % (20-55); Metamyelocytes 2 %; Segmented Neutrophils 53 % (50-85); Total Cells Counted 100
[2017-05-28 03:48] LABS: Hypochromasia 1+; Platelet Estimate Decreased
[2017-05-28] MEDS ORDERED: SODIUM CHLORIDE 0.9% 1,000 ML IV PRN (09:26)
[2017-05-28] MEDS ORDERED: MAGNESIUM SULF RIDER 4 GM in PREMIX 1 EACH IV ONE (09:28)
[2017-05-28] MEDS: ACETAMINOPHEN 325 MG TABLET PO PRN (17:09)
[2017-05-28] MEDS: MEROPENEM 1,000 MG in SYRINGE 1 EACH IV SCH (18:58)
[2017-05-28 21:20] LABS: Apearance,Urine CLEAR (Clear); Bilirubin,Urine Negative (Negative); Blood, Urine Moderate mg/dL (Negative); Glucose,Urine (UA) Negative (Negative); Ketones,Urine Negative (Negative); Mucus,Urine Occasional /LPF (Occasional); Nitrite,Urine Negative (Negative); Protein,Urine Negative; RBC,Urine 40 /HPF (0-4); Urine Color Yellow (Yellow); Urine Specific Gravity 1.012 (1.001-1.035); WBC,Urine 2 /HPF (0-6)
[2017-05-28] MEDS: ALLOPURINOL 300 MG TABLET PO SCH (21:56)
[2017-05-29] MEDS: MEROPENEM 1,000 MG in SYRINGE 1 EACH IV SCH ×3 (01:25→17:09)
[2017-05-29] MEDS: ACETAMINOPHEN 325 MG TABLET PO PRN ×2 (03:29→11:47)
[2017-05-29] MEDS: SODIUM CHLOR 0.9% KCL 40 MEQ 40 MEQ/1,000 ML BAG IV SCH ×3 (05:45→17:09)
[2017-05-29 06:48] LABS: Basophils % 0.4 % (0.0-0.8); Eosinophils % 0.4 % (0.00-10.9); Hematocrit 25.1 VOL% (42.0-52.0); Immature Granulocytes % 0.9 %; Immature Granulocytes Absolute 0.02 #; Lymphocytes # 0.8 10*3/uL (1.4-4.0); Mean Corpuscular HGB Conc 33.1 GM/DL (32-36); Mean Corpuscular Hemoglobin 32 PG (27-34); Mean Corpuscular Volume 97.7 FL (87-102); Mean Platelet Volume 11.8 FL (9.6-12.0); Monocytes # 0.1 10*3/uL (0.11-0.8); Monocytes % 2.6 % (1.7-12.7); Neutrophils # 1.4 10*3/uL (1.4-7.4); Neutrophils % 62.7 % (38.7-73.9); Red Blood Count 2.57 MC/CUMM (3.8-5.5); Red Cell Distribution Width 17.2 % (9.3-17.3); White Blood Count 2.3 T/CUMM (4-12)
[2017-05-29 06:58] LABS: Hemoglobin 8.3 GM/DL (14.0-18.0)
[2017-05-29 07:00] LABS: Platelet Count 17 T/CUMM (130-400)
[2017-05-29 07:12] LABS: Calcium 8.4 MG/DL (8.5-10.1); Osmolality,Calculated 267.1 MOS/KG (273-304); Potassium 4.1 MMOL/L (3.5-5.1)
[2017-05-29 07:15] LABS: Eosinophils 1 % (0-10); Hypochromasia 1+; Lymphocytes 32 % (20-55); Ovalocytes Slight; Platelet Estimate Decreased; Segmented Neutrophils 64 % (50-85); Total Cells Counted 100
[2017-05-29] MEDS: BENZOCAINE 20% SPRAY 57 GM CAN TOP PRN ×2 (09:21→17:12)
[2017-05-29] MEDS: ALLOPURINOL 300 MG TABLET PO SCH ×2 (09:22→20:33)
[2017-05-29] MEDS ORDERED: SODIUM CHLORIDE 0.9% 1,000 ML IV PRN (09:36)
[2017-05-30] MEDS: SODIUM CHLOR 0.9% KCL 40 MEQ 40 MEQ/1,000 ML BAG IV SCH ×3 (02:34→11:14)
[2017-05-30] MEDS: MEROPENEM 1,000 MG in SYRINGE 1 EACH IV SCH ×3 (02:35→19:05)
[2017-05-30 05:48] LABS: Eosinophils % 0.6 % (0.00-10.9); Hematocrit 23.2 VOL% (42.0-52.0); Hemoglobin 7.8 GM/DL (14.0-18.0); Immature Granulocytes % 1.2 %; Immature Granulocytes Absolute 0.02 #; Lymphocytes # 0.6 10*3/uL (1.4-4.0); Mean Corpuscular HGB Conc 33.6 GM/DL (32-36); Mean Corpuscular Hemoglobin 32 PG (27-34); Mean Corpuscular Volume 95.9 FL (87-102); Mean Platelet Volume 9.9 FL (9.6-12.0); Monocytes % 2.3 % (1.7-12.7); Neutrophils % 59.9 % (38.7-73.9); Red Blood Count 2.42 MC/CUMM (3.8-5.5); Red Cell Distribution Width 16.5 % (9.3-17.3); White Blood Count 1.7 T/CUMM (4-12)
[2017-05-30 05:56] LABS: Platelet Count 39 T/CUMM (130-400)
[2017-05-30 06:09] LABS: PT Patient Result 10.9 SECS
[2017-05-30 06:25] LABS: Calcium 8.7 MG/DL (8.5-10.1); Osmolality,Calculated 265.2 MOS/KG (273-304); Potassium 4.6 MMOL/L (3.5-5.1)
[2017-05-30 07:17] LABS: Band Neutrophils 1 % (0-10); Lymphocytes 41 % (20-55); Platelet Estimate Decreased; Segmented Neutrophils 55 % (50-85); Total Cells Counted 100
[2017-05-30] MEDS: ALLOPURINOL 300 MG TABLET PO SCH (08:25)
[2017-05-30] MEDS: PANTOPRAZOLE 40 MG VIAL IV SCH (08:25)
[2017-05-30] MEDS: ALLOPURINOL 100 MG TABLET PO SCH (09:41)
[2017-05-31] MEDS: MEROPENEM 1,000 MG in SYRINGE 1 EACH IV SCH ×2 (02:50→09:23)
[2017-05-31] MEDS: ALLOPURINOL 100 MG TABLET PO SCH (09:23)
[2017-05-31] MEDS: PANTOPRAZOLE 40 MG VIAL IV SCH (09:23)
[2017-05-31 11:02] LABS: Eosinophils % 0.4 % (0.00-10.9); Hematocrit 25.7 VOL% (42.0-52.0); Hemoglobin 8.8 GM/DL (14.0-18.0); Immature Granulocytes % 1.2 %; Immature Granulocytes Absolute 0.03 #; Lymphocytes # 0.7 10*3/uL (1.4-4.0); Lymphocytes % 29.7 % (21.2-54.2); Mean Corpuscular HGB Conc 34.2 GM/DL (32-36); Mean Corpuscular Hemoglobin 33 PG (27-34); Mean Corpuscular Volume 94.8 FL (87-102); Mean Platelet Volume 11.3 FL (9.6-12.0); Monocytes % 1.6 % (1.7-12.7); Neutrophils # 1.7 10*3/uL (1.4-7.4); Neutrophils % 67.1 % (38.7-73.9); Red Blood Count 2.71 MC/CUMM (3.8-5.5); Red Cell Distribution Width 16.2 % (9.3-17.3); White Blood Count 2.5 T/CUMM (4-12)
[2017-05-31 11:07] LABS: Platelet Count 22 T/CUMM (130-400)
[2017-05-31 11:37] LABS: Band Neutrophils 2 % (0-10); Lymphocytes 28 % (20-55); Segmented Neutrophils 69 % (50-85); Total Cells Counted 100
[2017-05-31 11:40] LABS: Hypochromasia 1+
[2017-05-31 11:41] LABS: Microcytosis 1+; Platelet Estimate Decreased
[2017-05-31] MEDS ORDERED: traMADol 50 MG TABLET PO PRN (12:14)
[2017-06-01 05:50] LABS: Basophils % 0.4 % (0.0-0.8); Eosinophils % 0.4 % (0.00-10.9); Hematocrit 23.4 VOL% (42.0-52.0); Hemoglobin 8.1 GM/DL (14.0-18.0); Immature Granulocytes % 1.1 %; Immature Granulocytes Absolute 0.03 #; Lymphocytes # 0.9 10*3/uL (1.4-4.0); Lymphocytes % 34.6 % (21.2-54.2); Mean Corpuscular HGB Conc 34.6 GM/DL (32-36); Mean Corpuscular Hemoglobin 33 PG (27-34); Mean Platelet Volume 9.4 FL (9.6-12.0); Monocytes # 0.1 10*3/uL (0.11-0.8); Monocytes % 2.3 % (1.7-12.7); Neutrophils # 1.6 10*3/uL (1.4-7.4); Neutrophils % 61.2 % (38.7-73.9); Red Blood Count 2.49 MC/CUMM (3.8-5.5); Red Cell Distribution Width 15.9 % (9.3-17.3); White Blood Count 2.6 T/CUMM (4-12)
[2017-06-01 05:53] LABS: Platelet Count 12 T/CUMM (130-400)
[2017-06-01 06:13] LABS: Calcium 8.8 MG/DL (8.5-10.1); Osmolality,Calculated 264.4 MOS/KG (273-304); Potassium 4.2 MMOL/L (3.5-5.1)
[2017-06-01 07:10] LABS: Hypochromasia 1+; Lymphocytes 38 % (20-55); Ovalocytes Slight; Platelet Estimate Decreased; Segmented Neutrophils 59 % (50-85); Total Cells Counted 100
[2017-06-01 07:11] LABS: Microcytosis 1+
[2017-06-01] MEDS: ALLOPURINOL 100 MG TABLET PO SCH (08:49)
[2017-06-01] MEDS: PANTOPRAZOLE 40 MG VIAL IV SCH (08:49)
[2017-06-01] MEDS ORDERED: SODIUM CHLORIDE 0.9% 1,000 ML IV PRN (10:10)
[2017-06-01] MEDS: LEVOFLOXACIN 750 MG TABLET PO SCH (11:00)
[2017-06-01] MEDS: ACETAMINOPHEN 325 MG TABLET PO PRN (14:57)
[2017-06-02 04:50] LABS: Hematocrit 22.1 VOL% (42.0-52.0); Hemoglobin 7.4 GM/DL (14.0-18.0); Immature Granulocytes % 1.1 %; Immature Granulocytes Absolute 0.03 #; Lymphocytes % 37.7 % (21.2-54.2); Mean Corpuscular HGB Conc 33.5 GM/DL (32-36); Mean Corpuscular Hemoglobin 33 PG (27-34); Mean Corpuscular Volume 97.4 FL (87-102); Mean Platelet Volume 9.5 FL (9.6-12.0); Monocytes # 0.1 10*3/uL (0.11-0.8); Monocytes % 2.6 % (1.7-12.7); Neutrophils # 1.6 10*3/uL (1.4-7.4); Neutrophils % 58.6 % (38.7-73.9); Red Blood Count 2.27 MC/CUMM (3.8-5.5); Red Cell Distribution Width 15.9 % (9.3-17.3); White Blood Count 2.7 T/CUMM (4-12)
[2017-06-02 05:50] LABS: Platelet Count 23 T/CUMM (130-400)
[2017-06-02 06:56] LABS: Band Neutrophils 2 % (0-10); Lymphocytes 38 % (20-55); Platelet Estimate Decreased; Segmented Neutrophils 57 % (50-85); Total Cells Counted 100
[2017-06-02] MEDS: PANTOPRAZOLE 40 MG VIAL IV SCH (08:59)
[2017-06-02] MEDS: ALLOPURINOL 100 MG TABLET PO SCH (08:59)
[2017-06-02] MEDS: LEVOFLOXACIN 750 MG TABLET PO SCH (08:59)
[2017-06-02 12:09] VITALS: BP 109/71
== END 2017-06-02 12:13 | disposition home or self-care (01) | DRG 660 ==
LOC: N.ED 18:20 → N.EDINP 20:19 → SUATTDRO 20:19 → N.4E 20:51
PROVIDERS: ADMIT Internal Medicine; ATTEND Internal Medicine

== ENCOUNTER 2019-04-21 11:17 | Inpatient (IN) ==
[2019-04-21] MEDS ORDERED: SODIUM CHLORIDE 0.9% 1,000 ML IV STA (11:42)
[2019-04-21 12:35] LABS: Basophils # 0.1 10*3/uL (0.0-0.2); Basophils % 0.2 % (0.0-0.8); Eosinophils % 0.1 % (0.00-10.9); Hematocrit 25.6 VOL% (42.0-52.0); Immature Granulocytes % 2.4 %; Immature Granulocytes Absolute 0.61 #; Lymphocytes # 0.8 10*3/uL (1.4-4.0); Lymphocytes % 3.2 % (21.2-54.2); Mean Corpuscular HGB Conc 35.2 GM/DL (32-36); Mean Corpuscular Volume 104.1 FL (87-102); Mean Platelet Volume 11.2 FL (9.6-12.0); Monocytes % 0.4 % (1.7-12.7); NRBC # 0.13 10*3/uL; Neutrophils % 93.7 % (38.7-73.9); Platelet Count 304 T/CUMM (130-400); Red Blood Count 2.46 MC/CUMM (3.8-5.5); Red Cell Distribution Width 15.9 % (9.3-17.3); White Blood Count 25.1 T/CUMM (4-12)
[2019-04-21 12:43] LABS: INR 1.1; PT Patient Result 12.1 SECS (9.6-12.2)
[2019-04-21 12:56] LABS: Albumin 2.4 G/DL (3.4-5.0); Bilirubin,Total 0.5 MG/DL (0.2-1.0); Calcium 8.8 MG/DL (8.5-10.1); Osmolality,Calculated 277.7 MOS/KG (273-304); Total Protein 7.7 G/DL (6.4-8.3)
[2019-04-21 12:57] LABS: Anisocytosis 2+; Band Neutrophils 10 % (0-10); Eosinophils 1 % (0-10); Lymphocytes 9 % (20-55); Macrocytosis 2+; Nucleated Red Blood Cells 1 (0-5); Platelet Estimate Normal; Segmented Neutrophils 80 % (50-85); Total Cells Counted 100
[2019-04-21 12:59] LABS: Poikilocytosis Slight; Polychromasia Slight
[2019-04-21] MEDS ORDERED: POTASSIUM CHLORIDE 20 MEQ TABLET PO ONE (13:11)
[2019-04-21] MEDS ORDERED: SODIUM CHLOR 0.9% KCL 20 MEQ 20 MEQ/1,000 ML BAG IV ONE (13:11)
[2019-04-21] MEDS ORDERED: cefTRIAXone 1,000 MG VIAL ONE (13:11)
[2019-04-21] MEDS ORDERED: ONDANSETRON 4 MG/2 ML VIAL ONE (13:50)
[2019-04-21] MEDS ORDERED: MORPHINE 4 MG/1 ML VIAL ONE (13:50)
[2019-04-21] MEDS ORDERED: cefTRIAXone 1,000 MG in SODIUM CHLORIDE 0.9% 100 ML IV STA (14:08)
[2019-04-21] MEDS ORDERED: POTASSIUM CHLORIDE 20 MEQ TABLET PO STA (14:09)
[2019-04-21] MEDS ORDERED: SODIUM CHLOR 0.9% KCL 20 MEQ 20 MEQ/1,000 ML BAG IV SCH (14:30)
[2019-04-21] MEDS ORDERED: ACETAMINOPHEN 325 MG TABLET PO PRN (14:35)
[2019-04-21] MEDS ORDERED: ONDANSETRON 4 MG/2 ML VIAL IV PRN (14:35)
[2019-04-21] MEDS ORDERED: LACTATED RINGERS 1,000 ML IV ONE (14:49)
[2019-04-21] MEDS: POTASSIUM CHLORIDE 20 MEQ/15 ML UDCUP PO SCH ×4 (15:33→21:04)
[2019-04-21] MEDS: allopurinoL 300 MG TABLET PO SCH ×2 (15:33→21:04)
[2019-04-21] MEDS: PANTOPRAZOLE 40 MG TABLET PO SCH (15:33)
[2019-04-21] MEDS: NYSTATIN CREAM 15 GM TUBE TOP SCH ×2 (16:06→21:04)
[2019-04-21] MEDS: SODIUM CHLOR 0.9% KCL 40 MEQ 40 MEQ/1,000 ML BAG IV SCH (17:11)
[2019-04-21 17:40] LABS: Calcium 9.1 MG/DL (8.5-10.1); Osmolality,Calculated 276.8 MOS/KG (273-304)
[2019-04-21] MEDS ORDERED: DASATINIB 100 MG PO SCH (19:00)
[2019-04-21] MEDS ORDERED: MAGNESIUM OXIDE 400 MG TABLET PO SCH (19:00)
[2019-04-22] MEDS: POTASSIUM CHLORIDE 20 MEQ/15 ML UDCUP PO SCH ×2 (00:07→01:14)
[2019-04-22] MEDS: SODIUM CHLOR 0.9% KCL 40 MEQ 40 MEQ/1,000 ML BAG IV SCH ×5 (01:07→23:21)
[2019-04-22 03:50] LABS: Basophils % 0.2 % (0.0-0.8); Eosinophils % 0.2 % (0.00-10.9); Hematocrit 24.7 VOL% (42.0-52.0); Hemoglobin 8.4 GM/DL (14.0-18.0); Immature Granulocytes % 2.1 %; Immature Granulocytes Absolute 0.41 #; Lymphocytes # 0.7 10*3/uL (1.4-4.0); Lymphocytes % 3.7 % (21.2-54.2); Mean Corpuscular Volume 107.4 FL (87-102); Mean Platelet Volume 11.2 FL (9.6-12.0); Monocytes % 0.4 % (1.7-12.7); NRBC # 0.09 10*3/uL; Neutrophils % 93.4 % (38.7-73.9); Platelet Count 281 T/CUMM (130-400); Red Cell Distribution Width 16.4 % (9.3-17.3); White Blood Count 19.5 T/CUMM (4-12)
[2019-04-22 04:11] LABS: Calcium 8.7 MG/DL (8.5-10.1); Osmolality,Calculated 291.7 MOS/KG (273-304); Troponin I 0.03 NG/ML (0.00-0.045)
[2019-04-22] MEDS: LORazepam 2 MG/1 ML VIAL IV PRN (04:51)
[2019-04-22 06:22] LABS: Band Neutrophils 1 % (0-10); Lymphocytes 5 % (20-55); Nucleated Red Blood Cells 1 (0-5); Platelet Estimate Normal; Segmented Neutrophils 94 % (50-85); Total Cells Counted 100
[2019-04-22] MEDS ORDERED: LACTATED RINGERS 500 ML IV ONE (09:36)
[2019-04-22 10:48] LABS: Apearance,Urine CLEAR (Clear); Bacteria,Urine Occasional /HPF (Few); Blood, Urine Small mg/dL (Negative); Glucose,Urine (UA) Negative (Negative); Hyaline Casts,Urine 7 /LPF (0-3); Ketones,Urine 5 mg/dL (Negative); Mucus,Urine Occasional /LPF (Occasional); Nitrite,Urine Negative (Negative); Protein,Urine 30 MG/DL; RBC,Urine 21 /HPF (0-4); Squamous Epithelial Cell,Urine Occasional /HPF (0-10); Urine Color Amber (Yellow); Urine Specific Gravity 1.026 (1.001-1.035); WBC,Urine 3 /HPF (0-6)
[2019-04-22 10:51] LABS: Bilirubin,Urine Small mg/dL (Negative)
[2019-04-22] MEDS: PANTOPRAZOLE 40 MG TABLET PO SCH ×2 (10:52→11:19)
[2019-04-22] MEDS: allopurinoL 300 MG TABLET PO SCH ×2 (10:52→11:19)
[2019-04-22] MEDS: MEROPENEM 500 MG in SODIUM CHLORIDE 0.9% 100 ML IV SCH ×3 (10:56→21:18)
[2019-04-22] MEDS: NYSTATIN CREAM 15 GM TUBE TOP SCH ×3 (10:57→21:17)
[2019-04-22 11:20] LABS: ABG Base Excess 0.9 MMOL/L (-2.5-2.5); ABG HCO3 25.2 MMOL/L (20-26); ABG Oxygen Saturation 90.3 % (95-100); ABG PCO2 36.9 MM HG (35-48); ABG PH 7.438 (7.35-7.45); ABG PO2 63.3 MM HG (80-95); ABG TCO2 23.2 MMOL/L (23-27); Allen Test Positive; Pt O2 Delivery Device Ventilator
[2019-04-22] MEDS: PANTOPRAZOLE 40 MG VIAL IV SCH (15:18)
[2019-04-22] MEDS: hydrALAZINE 20 MG/1 ML VIAL IV PRN ×2 (15:50→23:17)
[2019-04-22] MEDS: cloNIDine 0.3 MG/24 HR PATCH TRANSDERM SCH (16:33)
[2019-04-23 03:20] LABS: ABG Base Excess 0.8 MMOL/L (-2.5-2.5); ABG HCO3 25.2 MMOL/L (20-26); ABG Oxygen Saturation 99.5 % (95-100); ABG PCO2 33.1 MM HG (35-48); ABG PH 7.472 (7.35-7.45); ABG TCO2 22.4 MMOL/L (23-27); Allen Test Positive; Pt O2 Delivery Device Ventilator
[2019-04-23] MEDS: SODIUM CHLOR 0.9% KCL 40 MEQ 40 MEQ/1,000 ML BAG IV SCH ×2 (03:31→06:56)
[2019-04-23] MEDS: MEROPENEM 500 MG in SODIUM CHLORIDE 0.9% 100 ML IV SCH ×4 (04:20→22:06)
[2019-04-23 05:45] LABS: Calcium 8.3 MG/DL (8.5-10.1)
[2019-04-23 06:30] LABS: Basophils # 0.1 10*3/uL (0.0-0.2); Basophils % 0.2 % (0.0-0.8); Eosinophils # 0.1 10*3/uL (0.0-0.87); Eosinophils % 0.2 % (0.00-10.9); Hematocrit 23.4 VOL% (42.0-52.0); Hemoglobin 8.1 GM/DL (14.0-18.0); Immature Granulocytes % 4.4 %; Immature Granulocytes Absolute 1.96 #; Lymphocytes # 0.9 10*3/uL (1.4-4.0); Lymphocytes % 1.9 % (21.2-54.2); Mean Corpuscular HGB Conc 34.6 GM/DL (32-36); Mean Corpuscular Volume 108.3 FL (87-102); Mean Platelet Volume 11.7 FL (9.6-12.0); Monocytes % 0.2 % (1.7-12.7); Neutrophils % 93.1 % (38.7-73.9); Platelet Count 181 T/CUMM (130-400); Red Blood Count 2.16 MC/CUMM (3.8-5.5)
[2019-04-23 06:31] LABS: White Blood Count 44.7 T/CUMM (4-12)
[2019-04-23 06:34] LABS: Platelet Estimate Adequate; Polychromasia Few; Segmented Neutrophils 97 % (50-85); Total Cells Counted 100
[2019-04-23] MEDS ORDERED: MAGNESIUM SULF RIDER 4 GM in PREMIX 1 EACH IV ONE (07:47)
[2019-04-23] MEDS: SODIUM CHLORIDE 0.45% 1,000 ML IV SCH ×4 (08:59→23:34)
[2019-04-23] MEDS: LEVOFLOXACIN INJ 500 MG in PREMIX 1 EACH IV SCH (09:00)
[2019-04-23] MEDS: PANTOPRAZOLE 40 MG VIAL IV SCH (09:02)
[2019-04-23] MEDS: NYSTATIN CREAM 15 GM TUBE TOP SCH ×3 (09:07→21:53)
[2019-04-23] MEDS ORDERED: MAGNESIUM SULF RIDER 50 ML IV ONE ×2 (09:09→09:10)
[2019-04-23] MEDS: FLUCONAZOLE INJ 200 MG in PREMIX 1 EACH IV SCH (14:10)
[2019-04-24 03:21] LABS: ABG Base Excess -2.1 MMOL/L (-2.5-2.5); ABG HCO3 22.7 MMOL/L (20-26); ABG Oxygen Saturation 99.1 % (95-100); ABG PCO2 30.5 MM HG (35-48); ABG PH 7.451 (7.35-7.45); ABG TCO2 19.8 MMOL/L (23-27); Allen Test Positive; Pt O2 Delivery Device Ventilator
[2019-04-24] MEDS: MEROPENEM 500 MG in SODIUM CHLORIDE 0.9% 100 ML IV SCH ×4 (04:29→22:31)
[2019-04-24 05:03] LABS: Basophils # 0.1 10*3/uL (0.0-0.2); Basophils % 0.2 % (0.0-0.8); Eosinophils # 0.2 10*3/uL (0.0-0.87); Eosinophils % 0.6 % (0.00-10.9); Hematocrit 22.7 VOL% (42.0-52.0); Hemoglobin 7.6 GM/DL (14.0-18.0); Immature Granulocytes % 6.1 %; Immature Granulocytes Absolute 2.26 #; Lymphocytes % 2.8 % (21.2-54.2); Mean Corpuscular HGB Conc 33.5 GM/DL (32-36); Mean Corpuscular Volume 108.6 FL (87-102); Mean Platelet Volume 9.9 FL (9.6-12.0); Monocytes % 0.3 % (1.7-12.7); NRBC # 0.16 10*3/uL; Platelet Count 125 T/CUMM (130-400); Red Blood Count 2.09 MC/CUMM (3.8-5.5); Red Cell Distribution Width 17.1 % (9.3-17.3); White Blood Count 37.2 T/CUMM (4-12)
[2019-04-24 05:21] LABS: Calcium 8.1 MG/DL (8.5-10.1); Osmolality,Calculated 293.4 MOS/KG (273-304)
[2019-04-24 06:34] LABS: Anisocytosis 2+; Band Neutrophils 2 % (0-10); Eosinophils 2 % (0-10); Lymphocytes 2 % (20-55); Macrocytosis 2+; Metamyelocytes 1 %; Nucleated Red Blood Cells 1 (0-5); Platelet Estimate Decreased; Segmented Neutrophils 92 % (50-85); Total Cells Counted 100
[2019-04-24 06:35] LABS: Ovalocytes Few
[2019-04-24] MEDS: SODIUM CHLORIDE 0.45% 1,000 ML IV SCH ×4 (07:02→22:29)
[2019-04-24] MEDS: LEVOFLOXACIN INJ 500 MG in PREMIX 1 EACH IV SCH (08:17)
[2019-04-24] MEDS: NYSTATIN CREAM 15 GM TUBE TOP SCH ×3 (08:18→21:36)
[2019-04-24] MEDS: PANTOPRAZOLE 40 MG VIAL IV SCH (08:19)
[2019-04-24 08:59] LABS: INR 1.1
[2019-04-24 09:40] LABS: Hepatitis B Core IgM Quant 0.11 Index; Hepatitis B Surface Ag Quant < 0.10 Index; Hepatitis B Surface Ag Result Negative (Negative); Hepatitis C Virus Ab Quant 0.18 Index; Hepatitis C Virus Ab Result Negative (Negative)
[2019-04-24] MEDS: hydrALAZINE 20 MG/1 ML VIAL IV PRN (10:44)
[2019-04-24] MEDS: FLUCONAZOLE INJ 200 MG in PREMIX 1 EACH IV SCH (14:24)
[2019-04-25] MEDS: SODIUM CHLORIDE 0.45% 1,000 ML IV SCH ×5 (00:18→21:31)
[2019-04-25 03:40] LABS: ABG Base Excess -2.7 MMOL/L (-2.5-2.5); ABG HCO3 22.2 MMOL/L (20-26); ABG Oxygen Saturation 98.2 % (95-100); ABG PCO2 29.8 MM HG (35-48); ABG PH 7.446 (7.35-7.45); ABG TCO2 18.6 MMOL/L (23-27); Allen Test Positive; Pt O2 Delivery Device Ventilator
[2019-04-25] MEDS: MEROPENEM 500 MG in SODIUM CHLORIDE 0.9% 100 ML IV SCH ×4 (03:41→21:49)
[2019-04-25 04:50] LABS: Basophils # 0.1 10*3/uL (0.0-0.2); Basophils % 0.4 % (0.0-0.8); Eosinophils # 0.3 10*3/uL (0.0-0.87); Eosinophils % 1.3 % (0.00-10.9); Hematocrit 22.2 VOL% (42.0-52.0); Hemoglobin 7.6 GM/DL (14.0-18.0); Immature Granulocytes % 10.8 %; Immature Granulocytes Absolute 2.59 #; Lymphocytes # 0.9 10*3/uL (1.4-4.0); Lymphocytes % 3.7 % (21.2-54.2); Mean Corpuscular HGB Conc 34.2 GM/DL (32-36); Mean Corpuscular Volume 106.7 FL (87-102); Monocytes % 0.5 % (1.7-12.7); NRBC # 0.09 10*3/uL; Neutrophils % 83.3 % (38.7-73.9); Red Blood Count 2.08 MC/CUMM (3.8-5.5); Red Cell Distribution Width 16.8 % (9.3-17.3)
[2019-04-25 04:59] LABS: Calcium 7.7 MG/DL (8.5-10.1); Osmolality,Calculated 283.1 MOS/KG (273-304); Platelet Count 74 T/CUMM (130-400)
[2019-04-25 05:13] LABS: Band Neutrophils 3 % (0-10); Eosinophils 2 % (0-10); Hypochromasia 1+; Lymphocytes 4 % (20-55); Ovalocytes Slight; Platelet Estimate Decreased; Segmented Neutrophils 91 % (50-85); Total Cells Counted 100
[2019-04-25 05:14] LABS: Macrocytosis Slight
[2019-04-25] MEDS ORDERED: MAGNESIUM SULF RIDER 2 GM in PREMIX 1 EACH IV ONE (08:23)
[2019-04-25] MEDS: LEVOFLOXACIN INJ 500 MG in PREMIX 1 EACH IV SCH ×2 (08:51→11:44)
[2019-04-25] MEDS: PANTOPRAZOLE 40 MG VIAL IV SCH (08:51)
[2019-04-25] MEDS: NYSTATIN CREAM 15 GM TUBE TOP SCH ×3 (08:51→22:54)
[2019-04-25] MEDS ORDERED: POTASSIUM CHLORIDE IV SCH (09:00)
[2019-04-25] MEDS ORDERED: SODIUM CHLORIDE 0.45% IV SCH (09:00)
[2019-04-25] MEDS: FLUCONAZOLE INJ 200 MG in PREMIX 1 EACH IV SCH (14:55)
[2019-04-25] MEDS: ALBUTEROL/IPRATROPIUM 3 ML NEB RESP TX SCH (20:55)
[2019-04-26] MEDS: ALBUTEROL/IPRATROPIUM 3 ML NEB RESP TX SCH ×4 (01:01→19:38)
[2019-04-26] MEDS: MEROPENEM 500 MG in SODIUM CHLORIDE 0.9% 100 ML IV SCH ×4 (03:18→21:50)
[2019-04-26 03:36] LABS: ABG Base Excess -6.3 MMOL/L (-2.5-2.5); ABG HCO3 17.1 MMOL/L (20-26); ABG Oxygen Saturation 97.2 % (95-100); ABG PCO2 26.6 MM HG (35-48); ABG PH 7.425 (7.35-7.45); ABG TCO2 17.9 MMOL/L (23-27)
[2019-04-26 05:19] LABS: Basophils # 0.1 10*3/uL (0.0-0.2); Basophils % 0.5 % (0.0-0.8); Eosinophils # 0.2 10*3/uL (0.0-0.87); Eosinophils % 1.3 % (0.00-10.9); Hematocrit 22.8 VOL% (42.0-52.0); Hemoglobin 7.7 GM/DL (14.0-18.0); Immature Granulocytes % 14.4 %; Immature Granulocytes Absolute 2.64 #; Lymphocytes # 0.8 10*3/uL (1.4-4.0); Lymphocytes % 4.6 % (21.2-54.2); Mean Corpuscular HGB Conc 33.8 GM/DL (32-36); Monocytes % 0.7 % (1.7-12.7); NRBC # 0.11 10*3/uL; Neutrophils % 78.5 % (38.7-73.9); Platelet Count 59 T/CUMM (130-400); Red Blood Count 2.13 MC/CUMM (3.8-5.5); Red Cell Distribution Width 17.1 % (9.3-17.3); White Blood Count 18.3 T/CUMM (4-12)
[2019-04-26 05:31] LABS: Calcium 7.5 MG/DL (8.5-10.1); Osmolality,Calculated 275.5 MOS/KG (273-304)
[2019-04-26 05:44] LABS: Band Neutrophils 4 % (0-10); Eosinophils 4 % (0-10); Hypochromasia 1+; Lymphocytes 5 % (20-55); Myelocytes 1 %; Nucleated Red Blood Cells 1 (0-5); Platelet Estimate Decreased; Segmented Neutrophils 86 % (50-85); Total Cells Counted 100
[2019-04-26 05:45] LABS: Macrocytosis Slight
[2019-04-26] MEDS: PANTOPRAZOLE 40 MG VIAL IV SCH (08:09)
[2019-04-26] MEDS: NYSTATIN CREAM 15 GM TUBE TOP SCH ×3 (10:34→20:33)
[2019-04-26] MEDS: LEVOFLOXACIN INJ 500 MG in PREMIX 1 EACH IV SCH (11:39)
[2019-04-26] MEDS: FLUCONAZOLE INJ 200 MG in PREMIX 1 EACH IV SCH (13:37)
[2019-04-26] MEDS: SODIUM CHLORIDE 0.45% 1,000 ML IV SCH ×2 (14:40→16:51)
[2019-04-26] MEDS ORDERED: CALCIUM CHLORIDE IV ONE (16:02)
[2019-04-26] MEDS ORDERED: SODIUM CHLORIDE 0.9% IV ONE (16:02)
[2019-04-26] MEDS: PHENYLEPHRINE DRIP 40 MG/250 ML PREMIX IV PRN (16:02)
[2019-04-26] MEDS ORDERED: PHENYLEPHRINE DRIP 40 MG/250 ML PREMIX IV ONE (16:02)
[2019-04-26] MEDS ORDERED: CALCIUM CHLORIDE 1,000 MG/10 ML SYRINGE IV ONE ×2 (16:04→18:30)
[2019-04-26] MEDS ORDERED: ALBUMIN 5% 25 GM in PREMIX 1 EACH IV ONE (16:12)
[2019-04-26] MEDS ORDERED: ALBUMIN 5% 12.5 GM/250 ML VIAL IV ONE (16:13)
[2019-04-27] MEDS: ALBUTEROL/IPRATROPIUM 3 ML NEB RESP TX SCH ×4 (02:02→19:41)
[2019-04-27 03:49] LABS: Allen Test Positive; Pt O2 Delivery Device Ventilator
[2019-04-27 03:50] LABS: ABG Base Excess -4.5 MMOL/L (-2.5-2.5); ABG HCO3 20.6 MMOL/L (20-26); ABG Oxygen Saturation 99.1 % (95-100); ABG PCO2 28.7 MM HG (35-48); ABG PH 7.431 (7.35-7.45)
[2019-04-27] MEDS: MEROPENEM 500 MG in SODIUM CHLORIDE 0.9% 100 ML IV SCH ×4 (04:50→21:53)
[2019-04-27 05:20] LABS: Basophils % 0.2 % (0.0-0.8); Eosinophils # 0.3 10*3/uL (0.0-0.87); Eosinophils % 1.8 % (0.00-10.9); Hematocrit 22.6 VOL% (42.0-52.0); Hemoglobin 7.3 GM/DL (14.0-18.0); Immature Granulocytes % 20.2 %; Immature Granulocytes Absolute 2.81 #; Mean Corpuscular HGB Conc 32.3 GM/DL (32-36); Mean Corpuscular Volume 111.3 FL (87-102); Monocytes % 1.1 % (1.7-12.7); Neutrophils % 69.7 % (38.7-73.9); Red Blood Count 2.03 MC/CUMM (3.8-5.5); Red Cell Distribution Width 17.2 % (9.3-17.3); White Blood Count 13.9 T/CUMM (4-12)
[2019-04-27 05:32] LABS: Platelet Count 45 T/CUMM (130-400)
[2019-04-27 05:51] LABS: Prealbumin 3.3 MG/DL (20-40)
[2019-04-27 05:56] LABS: Albumin 1.7 G/DL (3.4-5.0); Bilirubin,Total 0.5 MG/DL (0.2-1.0); Calcium 7.9 MG/DL (8.5-10.1); Osmolality,Calculated 280.1 MOS/KG (273-304); Total Protein 5.9 G/DL (6.4-8.3)
[2019-04-27 06:08] LABS: Eosinophils 4 % (0-10); Lymphocytes 7 % (20-55); Myelocytes 1 %; Segmented Neutrophils 87 % (50-85); Total Cells Counted 100
[2019-04-27 06:09] LABS: Hypochromasia Slight; Platelet Estimate Decreased
[2019-04-27] MEDS ORDERED: SODIUM CHLORIDE 0.9% 1,000 ML IV PRN (07:27)
[2019-04-27] MEDS ORDERED: FUROSEMIDE 40 MG/4 ML VIAL IV ONE (07:35)
[2019-04-27] MEDS: PANTOPRAZOLE 40 MG VIAL IV SCH (08:10)
[2019-04-27] MEDS: NYSTATIN CREAM 15 GM TUBE TOP SCH ×3 (09:30→21:53)
[2019-04-27] MEDS: LEVOFLOXACIN INJ 500 MG in PREMIX 1 EACH IV SCH (10:10)
[2019-04-27] MEDS: FLUCONAZOLE INJ 200 MG in PREMIX 1 EACH IV SCH (13:15)
[2019-04-27] MEDS: SODIUM CHLORIDE 0.45% 1,000 ML IV SCH (16:00)
[2019-04-28] MEDS: ALBUTEROL/IPRATROPIUM 3 ML NEB RESP TX SCH ×4 (00:50→19:23)
[2019-04-28 03:33] LABS: ABG Base Excess -2.9 MMOL/L (-2.5-2.5); ABG HCO3 20.5 MMOL/L (20-26); ABG Oxygen Saturation 98.2 % (95-100); ABG PCO2 30.6 MM HG (35-48); ABG PH 7.444 (7.35-7.45); ABG PO2 145.5 MM HG (80-95); ABG TCO2 21.4 MMOL/L (23-27); Allen Test Positive; Pt O2 Delivery Device Ventilator
[2019-04-28] MEDS: MEROPENEM 500 MG in SODIUM CHLORIDE 0.9% 100 ML IV SCH (03:41)
[2019-04-28 05:14] LABS: Basophils % 0.1 % (0.0-0.8); Eosinophils # 0.3 10*3/uL (0.0-0.87); Hematocrit 27.6 VOL% (42.0-52.0); Immature Granulocytes % 19.2 %; Immature Granulocytes Absolute 2.82 #; Lymphocytes # 0.7 10*3/uL (1.4-4.0); Lymphocytes % 4.6 % (21.2-54.2); Mean Corpuscular HGB Conc 33.7 GM/DL (32-36); Mean Corpuscular Volume 98.6 FL (87-102); Monocytes % 0.8 % (1.7-12.7); NRBC # 0.06 10*3/uL; Neutrophils % 73.3 % (38.7-73.9); Red Cell Distribution Width 20.1 % (9.3-17.3); White Blood Count 14.7 T/CUMM (4-12)
[2019-04-28 05:35] LABS: Albumin 1.5 G/DL (3.4-5.0); Bilirubin,Total 0.5 MG/DL (0.2-1.0); Calcium 8.2 MG/DL (8.5-10.1); Osmolality,Calculated 281.3 MOS/KG (273-304); Total Protein 5.8 G/DL (6.4-8.3)
[2019-04-28] MEDS ORDERED: POTASSIUM CHLORIDE RIDER 100 ML IV ONE (05:55)
[2019-04-28 05:57] LABS: Hemoglobin 9.3 GM/DL (14.0-18.0); Platelet Count 29 T/CUMM (130-400)
[2019-04-28 06:00] LABS: Band Neutrophils 5 % (0-10); Eosinophils 2 % (0-10); Hypochromasia 1+; Lymphocytes 6 % (20-55); Metamyelocytes 1 %; Myelocytes 5 %; Platelet Estimate Decreased; Segmented Neutrophils 80 % (50-85); Total Cells Counted 100
[2019-04-28] MEDS: POTASSIUM CHLORIDE RIDER 10 MEQ in PREMIX 1 EACH IV PRN ×5 (06:10→10:50)
[2019-04-28] MEDS: FAMOTIDINE 20 MG/2 ML VIAL IV SCH ×2 (08:45→20:38)
[2019-04-28] MEDS: hydrALAZINE 20 MG/1 ML VIAL IV PRN ×3 (08:47→17:19)
[2019-04-28] MEDS: methylPREDNISolone SOD SUC 40 MG/1 ML VIAL IV SCH ×2 (08:49→20:40)
[2019-04-28] MEDS: METOCLOPRAMIDE 10 MG/2 ML VIAL IV SCH ×3 (08:50→20:41)
[2019-04-28] MEDS: NYSTATIN CREAM 15 GM TUBE TOP SCH (09:00)
[2019-04-28] MEDS: LEVOFLOXACIN INJ 500 MG in PREMIX 1 EACH IV SCH (10:50)
[2019-04-28] MEDS: SODIUM CHLORIDE 0.45% 1,000 ML IV SCH (11:00)
[2019-04-28] MEDS: MENTHOL/ZINC OXIDE OINT 71 GM JAR TOP SCH ×2 (13:30→20:43)
[2019-04-28] MEDS: MORPHINE 4 MG/1 ML VIAL IV PRN (14:25)
[2019-04-29] MEDS: ALBUTEROL/IPRATROPIUM 3 ML NEB RESP TX SCH ×4 (00:45→19:55)
[2019-04-29] MEDS: METOCLOPRAMIDE 10 MG/2 ML VIAL IV SCH (03:06)
[2019-04-29 03:36] LABS: ABG Base Excess -2.4 MMOL/L (-2.5-2.5); ABG HCO3 22.4 MMOL/L (20-26); ABG PCO2 29.4 MM HG (35-48); ABG PH 7.455 (7.35-7.45); ABG TCO2 18.8 MMOL/L (23-27); Allen Test Positive; Pt O2 Delivery Device Ventilator
[2019-04-29] MEDS: SODIUM CHLORIDE 0.45% 1,000 ML IV SCH ×2 (06:07→09:56)
[2019-04-29 06:15] LABS: Basophils # 0.1 10*3/uL (0.0-0.2); Basophils % 0.8 % (0.0-0.8); Hematocrit 25.9 VOL% (42.0-52.0); Immature Granulocytes Absolute 1.12 #; Lymphocytes # 0.3 10*3/uL (1.4-4.0); Lymphocytes % 3.8 % (21.2-54.2); Mean Corpuscular HGB Conc 34.7 GM/DL (32-36); Mean Corpuscular Volume 98.5 FL (87-102); Monocytes % 0.5 % (1.7-12.7); NRBC # 0.04 10*3/uL; Neutrophils % 81.9 % (38.7-73.9); Red Blood Count 2.63 MC/CUMM (3.8-5.5); Red Cell Distribution Width 19.9 % (9.3-17.3); White Blood Count 8.6 T/CUMM (4-12)
[2019-04-29] MEDS: hydrALAZINE 20 MG/1 ML VIAL IV PRN ×3 (06:15→19:07)
[2019-04-29 06:18] LABS: Platelet Count 22 T/CUMM (130-400)
[2019-04-29 06:41] LABS: Calcium 8.4 MG/DL (8.5-10.1); Osmolality,Calculated 283.4 MOS/KG (273-304)
[2019-04-29 06:55] LABS: Anisocytosis 1+; Band Neutrophils 1 % (0-10); Hypochromasia 1+; Lymphocytes 5 % (20-55); Metamyelocytes 2 %; Myelocytes 3 %; Nucleated Red Blood Cells 1 (0-5); Segmented Neutrophils 87 % (50-85); Total Cells Counted 100
[2019-04-29 06:56] LABS: Acanthocytes 1+; Platelet Estimate Decreased; Tear Drop Cells Few
[2019-04-29] MEDS: methylPREDNISolone SOD SUC 40 MG/1 ML VIAL IV SCH ×2 (09:53→21:31)
[2019-04-29] MEDS: cloNIDine 0.3 MG/24 HR PATCH TRANSDERM SCH (09:53)
[2019-04-29] MEDS: MENTHOL/ZINC OXIDE OINT 71 GM JAR TOP SCH ×2 (09:54→21:34)
[2019-04-29] MEDS: FAMOTIDINE 20 MG/2 ML VIAL IV SCH (09:56)
[2019-04-29 10:13] LABS: PT Patient Result 11.1 SECS (9.6-12.2)
[2019-04-29] MEDS: FLUCONAZOLE INJ 200 MG in PREMIX 1 EACH IV SCH (10:41)
[2019-04-29] MEDS: LEVOFLOXACIN INJ 500 MG in PREMIX 1 EACH IV SCH (11:53)
[2019-04-29] MEDS: LORazepam 2 MG/1 ML VIAL IV PRN (12:58)
[2019-04-29] MEDS ORDERED: SUCCINYLCHOLINE 200 MG/10 ML VIAL ONE (14:00)
[2019-04-29 14:01] LABS: ABG Base Excess -5.1 MMOL/L (-2.5-2.5); ABG Oxygen Saturation 87.7 % (95-100); ABG PCO2 56.3 MM HG (35-48); ABG PH 7.224 (7.35-7.45); ABG PO2 70.5 MM HG (80-95); ABG TCO2 21.5 MMOL/L (23-27)
[2019-04-29] MEDS ORDERED: SUCCINYLCHOLINE 200 MG/10 ML VIAL IV ONE (14:05)
[2019-04-29 15:39] LABS: ABG Base Excess -1.7 MMOL/L (-2.5-2.5); ABG Oxygen Saturation 99.7 % (95-100); ABG PH 7.441 (7.35-7.45); ABG TCO2 19.8 MMOL/L (23-27); Allen Test Positive; Pt O2 Delivery Device Ventilator
[2019-04-29] MEDS: lisinopriL 20 MG TABLET NG SCH (18:39)
[2019-04-29] MEDS: chlordiazePOXIDE 25 MG CAPSULE PO PRN (18:39)
[2019-04-30] MEDS: ALBUTEROL/IPRATROPIUM 3 ML NEB RESP TX SCH ×4 (00:15→19:50)
[2019-04-30] MEDS: hydrALAZINE 20 MG/1 ML VIAL IV PRN ×3 (00:18→13:35)
[2019-04-30 04:32] LABS: ABG Base Excess -1.2 MMOL/L (-2.5-2.5); ABG HCO3 23.5 MMOL/L (20-26); ABG Oxygen Saturation 99.5 % (95-100); ABG PCO2 29.8 MM HG (35-48); ABG PH 7.472 (7.35-7.45); Pt O2 Delivery Device Ventilator
[2019-04-30 06:12] LABS: Basophils % 0.5 % (0.0-0.8); Hematocrit 26.8 VOL% (42.0-52.0); Hemoglobin 9.1 GM/DL (14.0-18.0); Immature Granulocytes % 7.1 %; Immature Granulocytes Absolute 0.62 #; Lymphocytes # 0.4 10*3/uL (1.4-4.0); Lymphocytes % 4.6 % (21.2-54.2); Mean Corpuscular Volume 99.3 FL (87-102); Monocytes % 0.3 % (1.7-12.7); NRBC # 0.05 10*3/uL; Neutrophils % 87.5 % (38.7-73.9); Red Cell Distribution Width 20.3 % (9.3-17.3); White Blood Count 8.7 T/CUMM (4-12)
[2019-04-30 06:16] LABS: Platelet Count 20 T/CUMM (130-400)
[2019-04-30 06:41] LABS: Calcium 8.5 MG/DL (8.5-10.1)
[2019-04-30 06:48] LABS: Lymphocytes 3 % (20-55); Macrocytosis Slight; Nucleated Red Blood Cells 1 (0-5); Platelet Estimate Decreased; Segmented Neutrophils 97 % (50-85); Total Cells Counted 100
[2019-04-30 06:49] LABS: Anisocytosis 2+
[2019-04-30 06:50] LABS: Tear Drop Cells 1+
[2019-04-30 06:53] LABS: Target Cells 1+
[2019-04-30] MEDS: methylPREDNISolone SOD SUC 40 MG/1 ML VIAL IV SCH ×2 (07:45→18:10)
[2019-04-30] MEDS: MENTHOL/ZINC OXIDE OINT 71 GM JAR TOP SCH ×2 (09:19→21:01)
[2019-04-30] MEDS: METOPROLOL TARTRATE 50 MG TABLET PO SCH ×2 (09:39→20:58)
[2019-04-30] MEDS: FLUCONAZOLE INJ 200 MG in PREMIX 1 EACH IV SCH (09:39)
[2019-04-30] MEDS: LEVOFLOXACIN INJ 500 MG in PREMIX 1 EACH IV SCH (10:42)
[2019-04-30] MEDS: lisinopriL 20 MG TABLET NG SCH (18:10)
[2019-05-01] MEDS: ALBUTEROL/IPRATROPIUM 3 ML NEB RESP TX SCH ×4 (00:02→19:37)
[2019-05-01 04:35] LABS: ABG HCO3 26.2 MMOL/L (20-26); ABG Oxygen Saturation 99.5 % (95-100); ABG PCO2 30.6 MM HG (35-48); ABG PH 7.508 (7.35-7.45); ABG TCO2 21.6 MMOL/L (23-27); Allen Test Positive; Pt O2 Delivery Device Ventilator
[2019-05-01 05:21] LABS: Basophils % 0.3 % (0.0-0.8); Hematocrit 22.6 VOL% (42.0-52.0); Hemoglobin 7.5 GM/DL (14.0-18.0); Immature Granulocytes % 6.2 %; Immature Granulocytes Absolute 0.46 #; Lymphocytes # 0.4 10*3/uL (1.4-4.0); Mean Corpuscular HGB Conc 33.2 GM/DL (32-36); Mean Corpuscular Volume 100.9 FL (87-102); Monocytes % 0.4 % (1.7-12.7); NRBC # 0.08 10*3/uL; Neutrophils % 88.1 % (38.7-73.9); Platelet Count 73 T/CUMM (130-400); Red Blood Count 2.24 MC/CUMM (3.8-5.5); Red Cell Distribution Width 19.8 % (9.3-17.3); White Blood Count 7.5 T/CUMM (4-12)
[2019-05-01 05:49] LABS: Calcium 8.6 MG/DL (8.5-10.1); Osmolality,Calculated 300.4 MOS/KG (273-304)
[2019-05-01] MEDS: hydrALAZINE 20 MG/1 ML VIAL IV PRN (05:50)
[2019-05-01] MEDS: methylPREDNISolone SOD SUC 40 MG/1 ML VIAL IV SCH ×2 (05:53→18:00)
[2019-05-01 06:02] LABS: Band Neutrophils 8 % (0-10); Lymphocytes 9 % (20-55); Myelocytes 2 %; Platelet Estimate Decreased; Segmented Neutrophils 81 % (50-85); Target Cells Few; Total Cells Counted 100
[2019-05-01 06:03] LABS: Anisocytosis 3+; Poikilocytosis Slight
[2019-05-01] MEDS: POTASSIUM CHLORIDE RIDER 10 MEQ in PREMIX 1 EACH IV PRN ×2 (06:48→07:49)
[2019-05-01] MEDS ORDERED: SODIUM CHLORIDE 0.9% 1,000 ML IV PRN (08:50)
[2019-05-01] MEDS ORDERED: THIAMINE 200 MG/2 ML VIAL IV SCH (09:00)
[2019-05-01] MEDS: FLUCONAZOLE INJ 200 MG in PREMIX 1 EACH IV SCH (09:30)
[2019-05-01] MEDS: METOPROLOL TARTRATE 50 MG TABLET PO SCH ×2 (10:17→21:33)
[2019-05-01] MEDS: MULTIVITAMIN LIQUID (CENTRUM) 60 ML BOTTLE NG SCH (10:17)
[2019-05-01] MEDS: MENTHOL/ZINC OXIDE OINT 71 GM JAR TOP SCH ×2 (10:17→21:35)
[2019-05-01] MEDS: LEVOFLOXACIN INJ 500 MG in PREMIX 1 EACH IV SCH (10:44)
[2019-05-01 13:36] LABS: HIT Interpretation Negative (Negative)
[2019-05-01] MEDS ORDERED: METOCLOPRAMIDE 10 MG/2 ML VIAL IV PRN (17:01)
[2019-05-01] MEDS: lisinopriL 20 MG TABLET NG SCH (18:01)
[2019-05-01] MEDS: amLODIPine 10 MG TABLET NG SCH (21:35)
[2019-05-02] MEDS: ALBUTEROL/IPRATROPIUM 3 ML NEB RESP TX SCH ×4 (00:29→19:00)
[2019-05-02 04:03] LABS: ABG Base Excess 1.9 MMOL/L (-2.5-2.5); ABG HCO3 25.5 MMOL/L (20-26); ABG Oxygen Saturation 98.7 % (95-100); ABG PCO2 35.7 MM HG (35-48); ABG PH 7.472 (7.35-7.45); ABG PO2 258.8 MM HG (80-95); ABG TCO2 26.6 MMOL/L (23-27); Allen Test Positive; Pt O2 Delivery Device Ventilator
[2019-05-02] MEDS: methylPREDNISolone SOD SUC 40 MG/1 ML VIAL IV SCH ×2 (05:56→18:04)
[2019-05-02 06:40] LABS: Basophils # 0.1 10*3/uL (0.0-0.2); Basophils % 0.6 % (0.0-0.8); Hematocrit 24.4 VOL% (42.0-52.0); Hemoglobin 8.1 GM/DL (14.0-18.0); Immature Granulocytes % 10.6 %; Immature Granulocytes Absolute 1.05 #; Lymphocytes # 0.6 10*3/uL (1.4-4.0); Lymphocytes % 5.8 % (21.2-54.2); Mean Corpuscular HGB Conc 33.2 GM/DL (32-36); Mean Corpuscular Volume 98.4 FL (87-102); Mean Platelet Volume 11.7 FL (9.6-12.0); Monocytes % 0.8 % (1.7-12.7); NRBC # 0.11 10*3/uL; Neutrophils % 82.2 % (38.7-73.9); Platelet Count 60 T/CUMM (130-400); Red Blood Count 2.48 MC/CUMM (3.8-5.5); Red Cell Distribution Width 20.2 % (9.3-17.3); White Blood Count 9.9 T/CUMM (4-12)
[2019-05-02 07:09] LABS: Anisocytosis 2+; Band Neutrophils 10 % (0-10); Lymphocytes 6 % (20-55); Macrocytosis Slight; Nucleated Red Blood Cells 3 (0-5); Platelet Estimate Decreased; Poikilocytosis Slight; Segmented Neutrophils 84 % (50-85); Total Cells Counted 100
[2019-05-02 07:23] LABS: Calcium 9.1 MG/DL (8.5-10.1); Osmolality,Calculated 297.7 MOS/KG (273-304)
[2019-05-02] MEDS: POTASSIUM CHLORIDE RIDER 10 MEQ in PREMIX 1 EACH IV PRN ×2 (08:29→11:08)
[2019-05-02] MEDS ORDERED: FUROSEMIDE 40 MG/4 ML VIAL IV ONE (09:11)
[2019-05-02] MEDS: MULTIVITAMIN LIQUID (CENTRUM) 60 ML BOTTLE NG SCH (10:53)
[2019-05-02] MEDS: hydroCHLOROthiazide 12.5 MG CAPSULE NG SCH (10:53)
[2019-05-02] MEDS: METOPROLOL TARTRATE 50 MG TABLET PO SCH ×2 (10:54→20:04)
[2019-05-02] MEDS: THIAMINE 200 MG/2 ML VIAL IV SCH ×2 (10:54→21:57)
[2019-05-02] MEDS: MENTHOL/ZINC OXIDE OINT 71 GM JAR TOP SCH ×2 (10:55→21:22)
[2019-05-02] MEDS: LEVOFLOXACIN INJ 500 MG in PREMIX 1 EACH IV SCH (10:55)
[2019-05-02] MEDS: FLUCONAZOLE INJ 200 MG in PREMIX 1 EACH IV SCH (10:55)
[2019-05-02 11:16] LABS: ABG Base Excess 4.2 MMOL/L (-2.5-2.5); ABG HCO3 27.4 MMOL/L (20-26); ABG Oxygen Saturation 98.8 % (95-100); ABG PCO2 34.9 MM HG (35-48); ABG PH 7.512 (7.35-7.45); ABG PO2 266.5 MM HG (80-95); ABG TCO2 28.4 MMOL/L (23-27); Pt O2 Delivery Device Ventilator
[2019-05-02] MEDS: INSULIN REGULAR 100 UNIT/ML SUBCUT SCH ×2 (11:49→18:22)
[2019-05-02] MEDS: hydrALAZINE 20 MG/1 ML VIAL IV PRN (14:22)
[2019-05-02] MEDS: amLODIPine 10 MG TABLET NG SCH (21:22)
[2019-05-02] MEDS: lisinopriL 20 MG TABLET NG SCH (23:34)
[2019-05-03] MEDS: chlordiazePOXIDE 25 MG CAPSULE PO PRN (00:11)
[2019-05-03] MEDS: INSULIN REGULAR 100 UNIT/ML SUBCUT SCH ×5 (01:13→23:43)
[2019-05-03] MEDS: ALBUTEROL/IPRATROPIUM 3 ML NEB RESP TX SCH ×4 (01:20→19:14)
[2019-05-03] MEDS: MORPHINE 4 MG/1 ML VIAL IV PRN (01:28)
[2019-05-03] MEDS ORDERED: METOPROLOL TARTRATE 5 MG/5 ML VIAL IV ONE (01:52)
[2019-05-03] MEDS ORDERED: SODIUM CHLORIDE 0.9% 500 ML IV ONE ×3 (02:03→04:55)
[2019-05-03 02:05] LABS: ABG Base Excess 6.7 MMOL/L (-2.5-2.5); ABG HCO3 29.8 MMOL/L (20-26); ABG Oxygen Saturation 66.9 % (95-100); ABG PCO2 41.8 MM HG (35-48); ABG PH 7.477 (7.35-7.45); ABG TCO2 27.4 MMOL/L (23-27); Allen Test Positive
[2019-05-03 02:12] LABS: ABG PO2 34.2 MM HG (80-95)
[2019-05-03 02:27] LABS: ABG Base Excess 5.9 MMOL/L (-2.5-2.5); ABG HCO3 29.2 MMOL/L (20-26); ABG Oxygen Saturation 63.6 % (95-100); ABG PCO2 39.6 MM HG (35-48); ABG PH 7.484 (7.35-7.45); ABG TCO2 27.2 MMOL/L (23-27); Allen Test Positive
[2019-05-03 02:28] LABS: ABG PO2 31.7 MM HG (80-95)
[2019-05-03 02:40] LABS: ABG Base Excess 6.2 MMOL/L (-2.5-2.5); ABG HCO3 29.4 MMOL/L (20-26); ABG PCO2 41.2 MM HG (35-48); ABG PH 7.475 (7.35-7.45); ABG TCO2 27.9 MMOL/L (23-27)
[2019-05-03 02:51] LABS: Basophils # 0.2 10*3/uL (0.0-0.2); Basophils % 0.4 % (0.0-0.8); Hemoglobin 9.7 GM/DL (14.0-18.0); Immature Granulocytes % 5.7 %; Immature Granulocytes Absolute 2.71 #; Lymphocytes # 1.2 10*3/uL (1.4-4.0); Lymphocytes % 2.6 % (21.2-54.2); Mean Corpuscular HGB Conc 33.4 GM/DL (32-36); Mean Corpuscular Volume 99.3 FL (87-102); Mean Platelet Volume 12.7 FL (9.6-12.0); Monocytes % 0.9 % (1.7-12.7); NRBC # 0.76 10*3/uL; Neutrophils % 90.4 % (38.7-73.9); Platelet Count 135 T/CUMM (130-400); Red Blood Count 2.92 MC/CUMM (3.8-5.5); Red Cell Distribution Width 20.2 % (9.3-17.3)
[2019-05-03] MEDS ORDERED: SUCCINYLCHOLINE 200 MG/10 ML VIAL ONE (02:59)
[2019-05-03] MEDS ORDERED: ETOMIDATE 20 MG/10 ML VIAL IV ONE ×2 (03:00→05:07)
[2019-05-03 03:02] LABS: White Blood Count 47.6 T/CUMM (4-12)
[2019-05-03 03:03] LABS: Calcium 9.1 MG/DL (8.5-10.1)
[2019-05-03] MEDS ORDERED: NOREPINEPHRINE 4 MG/4 ML VIAL IV ONE ×2 (03:16→03:20)
[2019-05-03] MEDS ORDERED: EPINEPHrine 1 MG/10 ML SYRINGE ONE (03:16)
[2019-05-03 03:25] LABS: Band Neutrophils 1 % (0-10); Lymphocytes 2 % (20-55); Myelocytes 1 %; Nucleated Red Blood Cells 1 (0-5); Segmented Neutrophils 95 % (50-85); Total Cells Counted 100
[2019-05-03 03:26] LABS: Platelet Estimate Normal; Polychromasia Slight
[2019-05-03 03:27] LABS: Stomatocytes Few
[2019-05-03 03:28] LABS: Anisocytosis 2+; Macrocytosis Slight; Microcytosis Slight
[2019-05-03] MEDS: NOREPINEPHRINE 8 MG in SODIUM CHLORIDE 0.9% 242 ML IV PRN ×3 (03:28→10:46)
[2019-05-03] MEDS ORDERED: CEFEPIME 1,000 MG in SODIUM CHLORIDE 0.9% 100 ML IV SCH (03:30)
[2019-05-03] MEDS ORDERED: VANCOMYCIN INJ 1,250 MG in SODIUM CHLORIDE 0.9% 250 ML IV SCH (04:00)
[2019-05-03] MEDS ORDERED: ALBUMIN 25% 50 GM in PREMIX 1 EACH IV ONE (04:25)
[2019-05-03] MEDS ORDERED: MIDAZOLAM 2 MG/2 ML VIAL ONE (04:35)
[2019-05-03] MEDS ORDERED: MIDAZOLAM 2 MG/2 ML VIAL IV ONE (04:40)
[2019-05-03] MEDS ORDERED: MIDAZOLAM 100 MG in SODIUM CHLORIDE 0.9% 80 ML IV PRN (04:40)
[2019-05-03] MEDS: PHENYLEPHRINE DRIP 40 MG/250 ML PREMIX IV PRN ×4 (04:43→10:20)
[2019-05-03] MEDS ORDERED: KETAMINE 500 MG/10 ML VIAL IV ONE ×2 (04:45→05:30)
[2019-05-03] MEDS ORDERED: SODIUM CHLORIDE 0.9% 1,000 ML IV ONE (04:55)
[2019-05-03 04:56] LABS: ABG Base Excess -0.5 MMOL/L (-2.5-2.5); ABG HCO3 23.8 MMOL/L (20-26); ABG Oxygen Saturation 85.1 % (95-100); ABG PCO2 52.4 MM HG (35-48); ABG PO2 59.3 MM HG (80-95); ABG TCO2 24.3 MMOL/L (23-27); Allen Test Positive; Pt O2 Delivery Device Ventilator
[2019-05-03] MEDS ORDERED: ROCURONIUM 100 MG/10 ML VIAL IV ONE (05:03)
[2019-05-03] MEDS ORDERED: SUCCINYLCHOLINE 200 MG/10 ML VIAL IV ONE (05:08)
[2019-05-03] MEDS: KETAMINE IV SCH ×2 (05:30→17:36)
[2019-05-03] MEDS: SODIUM CHLORIDE 0.9% IV SCH ×2 (05:30→17:36)
[2019-05-03] MEDS ORDERED: FUROSEMIDE 40 MG/4 ML VIAL IV ONE ×2 (05:37→07:43)
[2019-05-03 06:30] LABS: Basophils # 0.4 10*3/uL (0.0-0.2); Basophils % 0.9 % (0.0-0.8); Hematocrit 29.1 VOL% (42.0-52.0); Hemoglobin 9.4 GM/DL (14.0-18.0); Immature Granulocytes % 10.1 %; Lymphocytes # 1.1 10*3/uL (1.4-4.0); Lymphocytes % 2.4 % (21.2-54.2); Mean Corpuscular HGB Conc 32.3 GM/DL (32-36); Mean Corpuscular Volume 102.5 FL (87-102); Monocytes % 2.3 % (1.7-12.7); NRBC # 1.74 10*3/uL; Neutrophils % 84.3 % (38.7-73.9); Platelet Count 175 T/CUMM (130-400); Red Blood Count 2.84 MC/CUMM (3.8-5.5); Red Cell Distribution Width 20.3 % (9.3-17.3)
[2019-05-03 06:33] LABS: White Blood Count 47.6 T/CUMM (4-12)
[2019-05-03] MEDS: CISATRACURIUM 200 MG in SODIUM CHLORIDE 0.9% 180 ML IV SCH ×2 (06:47→23:58)
[2019-05-03 07:04] LABS: Band Neutrophils 9 % (0-10); Hypochromasia 1+; Lymphocytes 3 % (20-55); Metamyelocytes 1 %; Myelocytes 2 %; Nucleated Red Blood Cells 6 (0-5); Ovalocytes Slight; Platelet Estimate Adequate; Segmented Neutrophils 83 % (50-85); Total Cells Counted 100
[2019-05-03 07:27] LABS: ABG Base Excess -5.7 MMOL/L (-2.5-2.5); ABG HCO3 19.3 MMOL/L (20-26); ABG Oxygen Saturation 68.5 % (95-100); ABG PO2 49.4 MM HG (80-95); ABG TCO2 23.2 MMOL/L (23-27)
[2019-05-03 07:29] LABS: ABG PCO2 69.2 MM HG (35-48)
[2019-05-03] MEDS: FLUCONAZOLE INJ 400 MG in PREMIX 1 EACH IV SCH (07:29)
[2019-05-03] MEDS: methylPREDNISolone SOD SUC 40 MG/1 ML VIAL IV SCH ×2 (07:40→17:53)
[2019-05-03] MEDS: PIPERACILLIN/TAZOBACTAM 3,375 MG in SODIUM CHLORIDE 0.9% 100 ML IV SCH ×3 (07:40→21:54)
[2019-05-03] MEDS ORDERED: SODIUM BICARBONATE 50 MEQ/50 ML VIAL IV ONE ×2 (07:41→12:54)
[2019-05-03] MEDS ORDERED: CALCIUM CHLORIDE 1,000 MG/10 ML SYRINGE IV ONE ×2 (07:42→07:53)
[2019-05-03 08:01] LABS: Calcium 8.4 MG/DL (8.5-10.1); Osmolality,Calculated 295.7 MOS/KG (273-304)
[2019-05-03] MEDS: FUROSEMIDE INJ 100 MG in SODIUM CHLORIDE 0.9% 90 ML IV SCH ×2 (08:26→17:19)
[2019-05-03] MEDS: MENTHOL/ZINC OXIDE OINT 71 GM JAR TOP SCH ×3 (09:11→21:52)
[2019-05-03] MEDS: hydroCHLOROthiazide 12.5 MG CAPSULE NG SCH (09:11)
[2019-05-03] MEDS: MULTIVITAMIN LIQUID (CENTRUM) 60 ML BOTTLE NG SCH (09:11)
[2019-05-03] MEDS: METOPROLOL TARTRATE 50 MG TABLET PO SCH ×2 (09:12→21:20)
[2019-05-03] MEDS: PANTOPRAZOLE 40 MG VIAL IV SCH ×2 (09:56→21:56)
[2019-05-03] MEDS: THIAMINE 200 MG/2 ML VIAL IV SCH ×2 (10:05→21:55)
[2019-05-03] MEDS: NYSTATIN POWDER 15 GM BOTTLE TOP SCH ×2 (10:14→21:58)
[2019-05-03] MEDS ORDERED: MAGNESIUM SULF RIDER 4 GM in PREMIX 1 EACH IV PRN (11:42)
[2019-05-03 11:57] LABS: ABG Base Excess -6.2 MMOL/L (-2.5-2.5); ABG HCO3 18.8 MMOL/L (20-26); ABG Oxygen Saturation 59.4 % (95-100); ABG PO2 42.6 MM HG (80-95); ABG TCO2 23.9 MMOL/L (23-27)
[2019-05-03 11:59] LABS: ABG PCO2 77.2 MM HG (35-48); ABG PH 7.111 (7.35-7.45)
[2019-05-03] MEDS: LEVOFLOXACIN INJ 500 MG in PREMIX 1 EACH IV SCH (12:20)
[2019-05-03] MEDS: PHENYLEPHRINE INJ 160 MG in SODIUM CHLORIDE 0.9% 234 ML IV PRN ×2 (12:21→19:43)
[2019-05-03] MEDS: POTASSIUM CHLORIDE RIDER 10 MEQ in PREMIX 1 EACH IV PRN (12:23)
[2019-05-03] MEDS: MAGNESIUM SULF RIDER 2 GM in PREMIX 1 EACH IV PRN (12:26)
[2019-05-03] MEDS: VANCOMYCIN 50 MG/ML 60 ML/BOTTLE PO SCH ×3 (12:35→23:56)
[2019-05-03] MEDS ORDERED: VASOPRESSIN 100 UNITS in SODIUM CHLORIDE 0.9% 95 ML IV PRN (12:56)
[2019-05-03] MEDS: NOREPINEPHRINE 16 MG in SODIUM CHLORIDE 0.9% 234 ML IV PRN ×2 (14:17→21:37)
[2019-05-03] MEDS: VANCOMYCIN INJ 1,250 MG in SODIUM CHLORIDE 0.9% 250 ML IV SCH (16:10)
[2019-05-03] MEDS: BUDESONIDE 0.5 MG/2 ML NEB RESP TX SCH (19:14)
[2019-05-03] MEDS: lisinopriL 20 MG TABLET NG SCH (20:48)
[2019-05-03] MEDS: amLODIPine 10 MG TABLET NG SCH (21:21)
[2019-05-04] MEDS: ALBUTEROL/IPRATROPIUM 3 ML NEB RESP TX SCH ×4 (01:23→19:56)
[2019-05-04] MEDS: PHENYLEPHRINE INJ 160 MG in SODIUM CHLORIDE 0.9% 234 ML IV PRN ×3 (03:08→17:57)
[2019-05-04] MEDS: FUROSEMIDE INJ 100 MG in SODIUM CHLORIDE 0.9% 90 ML IV SCH ×2 (03:58→14:22)
[2019-05-04] MEDS: VANCOMYCIN INJ 1,250 MG in SODIUM CHLORIDE 0.9% 250 ML IV SCH (04:19)
[2019-05-04 04:37] LABS: ABG Base Excess -3.2 MMOL/L (-2.5-2.5); ABG HCO3 21.4 MMOL/L (20-26); ABG Oxygen Saturation 76.4 % (95-100); ABG PCO2 57.7 MM HG (35-48); ABG PO2 49.6 MM HG (80-95); ABG TCO2 23.4 MMOL/L (23-27); Allen Test Positive; Pt O2 Delivery Device Ventilator
[2019-05-04 05:21] LABS: Albumin 2.1 G/DL (3.4-5.0); Bilirubin,Total 1.7 MG/DL (0.2-1.0); Calcium 8.6 MG/DL (8.5-10.1); Osmolality,Calculated 311.7 MOS/KG (273-304); Total Protein 5.8 G/DL (6.4-8.3)
[2019-05-04] MEDS: CISATRACURIUM 200 MG in SODIUM CHLORIDE 0.9% 180 ML IV SCH ×3 (05:47→18:27)
[2019-05-04] MEDS: PIPERACILLIN/TAZOBACTAM 3,375 MG in SODIUM CHLORIDE 0.9% 100 ML IV SCH ×3 (06:03→21:31)
[2019-05-04] MEDS: methylPREDNISolone SOD SUC 40 MG/1 ML VIAL IV SCH ×2 (06:06→17:56)
[2019-05-04] MEDS: FLUCONAZOLE INJ 400 MG in PREMIX 1 EACH IV SCH (06:11)
[2019-05-04] MEDS: VANCOMYCIN 50 MG/ML 60 ML/BOTTLE PO SCH ×3 (06:14→17:56)
[2019-05-04] MEDS: INSULIN REGULAR 100 UNIT/ML SUBCUT SCH ×3 (06:25→17:37)
[2019-05-04 06:35] LABS: Basophils # 0.1 10*3/uL (0.0-0.2); Basophils % 0.1 % (0.0-0.8); Hematocrit 23.7 VOL% (42.0-52.0); Hemoglobin 7.7 GM/DL (14.0-18.0); Immature Granulocytes % 7.1 %; Immature Granulocytes Absolute 7.34 #; Lymphocytes # 0.6 10*3/uL (1.4-4.0); Lymphocytes % 0.6 % (21.2-54.2); Mean Corpuscular HGB Conc 32.5 GM/DL (32-36); Mean Corpuscular Volume 106.8 FL (87-102); Mean Platelet Volume 12.8 FL (9.6-12.0); Monocytes % 1.2 % (1.7-12.7); NRBC # 6.43 10*3/uL; Platelet Count 141 T/CUMM (130-400); Red Blood Count 2.22 MC/CUMM (3.8-5.5); Red Cell Distribution Width 21.4 % (9.3-17.3)
[2019-05-04 06:37] LABS: White Blood Count 102.7 T/CUMM (4-12)
[2019-05-04 06:54] LABS: Band Neutrophils 20 % (0-10); Lymphocytes 8 % (20-55); Metamyelocytes 1 %; Myelocytes 1 %; Nucleated Red Blood Cells 11 (0-5); Segmented Neutrophils 69 % (50-85); Total Cells Counted 100
[2019-05-04 06:55] LABS: Atypical Lymphocytes Few; Hypochromasia 1+; Macrocytosis Slight; Platelet Estimate Normal; Polychromasia Slight
[2019-05-04] MEDS: SODIUM CHLORIDE 0.9% IV SCH ×2 (07:46→20:10)
[2019-05-04] MEDS: KETAMINE IV SCH ×2 (07:46→20:10)
[2019-05-04] MEDS: MENTHOL/ZINC OXIDE OINT 71 GM JAR TOP SCH ×2 (08:00→20:09)
[2019-05-04] MEDS: NYSTATIN POWDER 15 GM BOTTLE TOP SCH ×2 (08:00→20:09)
[2019-05-04] MEDS: BUDESONIDE 0.5 MG/2 ML NEB RESP TX SCH ×2 (08:05→19:56)
[2019-05-04] MEDS: METOPROLOL TARTRATE 50 MG TABLET PO SCH ×2 (08:11→20:02)
[2019-05-04] MEDS: hydroCHLOROthiazide 12.5 MG CAPSULE NG SCH (08:11)
[2019-05-04] MEDS: MULTIVITAMIN LIQUID (CENTRUM) 60 ML BOTTLE NG SCH (08:11)
[2019-05-04] MEDS: PANTOPRAZOLE 40 MG VIAL IV SCH ×2 (08:30→20:09)
[2019-05-04] MEDS: THIAMINE 200 MG/2 ML VIAL IV SCH ×2 (08:31→20:09)
[2019-05-04 10:25] LABS: ABG Base Excess -1.7 MMOL/L (-2.5-2.5); ABG HCO3 22.9 MMOL/L (20-26); ABG Oxygen Saturation 89.4 % (95-100); ABG PCO2 46.7 MM HG (35-48); ABG PH 7.325 (7.35-7.45); ABG PO2 62.1 MM HG (80-95); ABG TCO2 23.1 MMOL/L (23-27); Allen Test Positive; Pt O2 Delivery Device Ventilator
[2019-05-04] MEDS: metroNIDAZOLE 500 MG TABLET PO SCH ×2 (11:00→17:55)
[2019-05-04] MEDS: LEVOFLOXACIN INJ 500 MG in PREMIX 1 EACH IV SCH (11:16)
[2019-05-04] MEDS: ALBUMIN 25% 25 GM in PREMIX 1 EACH IV SCH (15:02)
[2019-05-04] MEDS ORDERED: DEXTROSE 10% 250 ML BAG IV PRN (17:29)
[2019-05-04] MEDS: lisinopriL 20 MG TABLET NG SCH (18:16)
[2019-05-04] MEDS: amLODIPine 10 MG TABLET NG SCH (20:02)
[2019-05-04] MEDS: NOREPINEPHRINE 16 MG in SODIUM CHLORIDE 0.9% 234 ML IV PRN (22:17)
[2019-05-05] MEDS: ALBUTEROL/IPRATROPIUM 3 ML NEB RESP TX SCH ×4 (00:24→20:08)
[2019-05-05] MEDS: FUROSEMIDE INJ 100 MG in SODIUM CHLORIDE 0.9% 90 ML IV SCH ×3 (00:33→18:17)
[2019-05-05] MEDS: INSULIN REGULAR 100 UNIT/ML SUBCUT SCH ×5 (00:34→23:35)
[2019-05-05] MEDS: VANCOMYCIN 50 MG/ML 60 ML/BOTTLE PO SCH ×5 (00:34→23:35)
[2019-05-05] MEDS: PHENYLEPHRINE INJ 160 MG in SODIUM CHLORIDE 0.9% 234 ML IV PRN ×4 (01:30→23:51)
[2019-05-05] MEDS: metroNIDAZOLE 500 MG TABLET PO SCH ×3 (02:16→17:20)
[2019-05-05] MEDS: ALBUMIN 25% 25 GM in PREMIX 1 EACH IV SCH ×2 (02:16→13:30)
[2019-05-05] MEDS: CISATRACURIUM 200 MG in SODIUM CHLORIDE 0.9% 180 ML IV SCH ×4 (03:17→21:05)
[2019-05-05] MEDS: methylPREDNISolone SOD SUC 40 MG/1 ML VIAL IV SCH (05:14)
[2019-05-05] MEDS: FLUCONAZOLE INJ 400 MG in PREMIX 1 EACH IV SCH (05:14)
[2019-05-05] MEDS: PIPERACILLIN/TAZOBACTAM 3,375 MG in SODIUM CHLORIDE 0.9% 100 ML IV SCH (05:15)
[2019-05-05 05:32] LABS: ABG Base Excess -12.6 MMOL/L (-2.5-2.5); ABG HCO3 16.1 MMOL/L (20-26); ABG Oxygen Saturation 79.8 % (95-100); ABG PCO2 50.8 MM HG (35-48); ABG PO2 61.6 MM HG (80-95); ABG TCO2 17.7 MMOL/L (23-27); Allen Test Positive; Pt O2 Delivery Device Ventilator
[2019-05-05 05:50] LABS: Basophils # 0.4 10*3/uL (0.0-0.2); Basophils % 0.5 % (0.0-0.8); Hematocrit 20.6 VOL% (42.0-52.0); Immature Granulocytes % 13.2 %; Immature Granulocytes Absolute 11.46 #; Lymphocytes # 0.8 10*3/uL (1.4-4.0); Lymphocytes % 0.9 % (21.2-54.2); Mean Corpuscular HGB Conc 31.1 GM/DL (32-36); Mean Corpuscular Volume 109.6 FL (87-102); Mean Platelet Volume 10.9 FL (9.6-12.0); Monocytes % 1.8 % (1.7-12.7); NRBC # 14.81 10*3/uL; Neutrophils % 83.6 % (38.7-73.9); Platelet Count 95 T/CUMM (130-400); Red Blood Count 1.88 MC/CUMM (3.8-5.5)
[2019-05-05 05:57] LABS: White Blood Count 86.6 T/CUMM (4-12)
[2019-05-05 05:58] LABS: Hemoglobin 6.4 GM/DL (14.0-18.0)
[2019-05-05 06:01] LABS: Calcium 8.1 MG/DL (8.5-10.1)
[2019-05-05] MEDS ORDERED: SODIUM BICARBONATE 10 MEQ/10 ML SYRINGE IV ONE (06:02)
[2019-05-05] MEDS ORDERED: SODIUM BICARBONATE 50 MEQ/50 ML VIAL IV ONE ×4 (06:02→18:05)
[2019-05-05 06:27] LABS: Band Neutrophils 3 % (0-10); Hypochromasia 1+; Lymphocytes 5 % (20-55); Myelocytes 1 %; Nucleated Red Blood Cells 28 (0-5); Ovalocytes Slight; Platelet Estimate Decreased; Segmented Neutrophils 89 % (50-85); Total Cells Counted 100
[2019-05-05] MEDS: SODIUM BICARB INJ 150 MEQ in DEXTROSE 5% 850 ML IV SCH ×2 (07:03→18:16)
[2019-05-05] MEDS: BUDESONIDE 0.5 MG/2 ML NEB RESP TX SCH ×2 (07:50→20:08)
[2019-05-05] MEDS: THIAMINE 200 MG/2 ML VIAL IV SCH ×2 (09:22→20:32)
[2019-05-05] MEDS: NYSTATIN POWDER 15 GM BOTTLE TOP SCH ×2 (09:22→20:35)
[2019-05-05] MEDS: MULTIVITAMIN LIQUID (CENTRUM) 60 ML BOTTLE NG SCH (09:22)
[2019-05-05] MEDS: MENTHOL/ZINC OXIDE OINT 71 GM JAR TOP SCH ×2 (09:22→20:35)
[2019-05-05] MEDS: METOPROLOL TARTRATE 50 MG TABLET PO SCH ×2 (09:22→20:35)
[2019-05-05] MEDS: PANTOPRAZOLE 40 MG VIAL IV SCH ×2 (09:22→20:30)
[2019-05-05] MEDS: hydroCHLOROthiazide 12.5 MG CAPSULE NG SCH (09:22)
[2019-05-05] MEDS: KETAMINE IV SCH (10:13)
[2019-05-05] MEDS: SODIUM CHLORIDE 0.9% IV SCH (10:13)
[2019-05-05] MEDS ORDERED: MEROPENEM 500 MG in SODIUM CHLORIDE 0.9% 100 ML IV SCH (11:30)
[2019-05-05 11:36] LABS: ABG HCO3 15.4 MMOL/L (20-26); ABG Oxygen Saturation 83.1 % (95-100); ABG PCO2 51.1 MM HG (35-48); ABG PO2 62.4 MM HG (80-95); ABG TCO2 17.2 MMOL/L (23-27)
[2019-05-05 11:38] LABS: Allen Test Positive; Pt O2 Delivery Device Ventilator
[2019-05-05] MEDS: HYDROCORTISONE 100 MG VIAL IV SCH ×3 (12:28→23:30)
[2019-05-05] MEDS: MEROPENEM 500 MG in SODIUM CHLORIDE 0.9% 100 ML IV SCH ×2 (12:30→18:37)
[2019-05-05] MEDS: LEVOFLOXACIN INJ 500 MG in PREMIX 1 EACH IV SCH (12:41)
[2019-05-05 12:45] LABS: ABG PH 7.142 (7.35-7.45)
[2019-05-05 14:16] LABS: ABG Base Excess -7.1 MMOL/L (-2.5-2.5); ABG HCO3 18.4 MMOL/L (20-26); ABG Oxygen Saturation 81.3 % (95-100); ABG PCO2 50.8 MM HG (35-48); ABG PH 7.212 (7.35-7.45); ABG PO2 56.2 MM HG (80-95); ABG TCO2 19.9 MMOL/L (23-27); Allen Test Positive; Pt O2 Delivery Device Ventilator
[2019-05-05 18:00] LABS: ABG Base Excess -8.1 MMOL/L (-2.5-2.5); ABG HCO3 17.8 MMOL/L (20-26); ABG Oxygen Saturation 88.7 % (95-100); ABG PCO2 52.2 MM HG (35-48); ABG PO2 69.4 MM HG (80-95); ABG TCO2 18.9 MMOL/L (23-27); Allen Test Positive; Pt O2 Delivery Device Ventilator
[2019-05-05 18:03] LABS: ABG PH 7.198 (7.35-7.45)
[2019-05-05] MEDS: lisinopriL 20 MG TABLET NG SCH (18:27)
[2019-05-05] MEDS: amLODIPine 10 MG TABLET NG SCH (20:36)
[2019-05-05 22:28] VITALS: BP 120/91
[2019-05-05 23:38] LABS: Osmolality,Calculated 341.2 MOS/KG (273-304)
[2019-05-06] MEDS: SODIUM CHLORIDE 0.9% IV SCH ×3 (00:10→14:50)
[2019-05-06] MEDS: KETAMINE IV SCH ×3 (00:10→14:50)
[2019-05-06] MEDS: ALBUMIN 25% 25 GM in PREMIX 1 EACH IV SCH (01:48)
[2019-05-06] MEDS: metroNIDAZOLE 500 MG TABLET PO SCH ×3 (01:48→18:36)
[2019-05-06] MEDS: ALBUTEROL/IPRATROPIUM 3 ML NEB RESP TX SCH ×4 (02:07→19:13)
[2019-05-06] MEDS: MEROPENEM 500 MG in SODIUM CHLORIDE 0.9% 100 ML IV SCH ×3 (02:46→20:06)
[2019-05-06 03:33] LABS: Basophils # 0.1 10*3/uL (0.0-0.2); Basophils % 0.2 % (0.0-0.8); Hematocrit 23.5 VOL% (42.0-52.0); Hemoglobin 7.8 GM/DL (14.0-18.0); Immature Granulocytes % 15.7 %; Immature Granulocytes Absolute 11.09 #; Lymphocytes # 0.1 10*3/uL (1.4-4.0); Lymphocytes % 0.1 % (21.2-54.2); Mean Corpuscular HGB Conc 33.2 GM/DL (32-36); Mean Corpuscular Volume 99.2 FL (87-102); Monocytes % 1.5 % (1.7-12.7); NRBC # 15.49 10*3/uL; Neutrophils % 82.5 % (38.7-73.9); Platelet Count 63 T/CUMM (130-400); Red Blood Count 2.37 MC/CUMM (3.8-5.5); Red Cell Distribution Width 19.9 % (9.3-17.3)
[2019-05-06 03:38] LABS: White Blood Count 70.5 T/CUMM (4-12)
[2019-05-06 03:46] LABS: Osmolality,Calculated 338.7 MOS/KG (273-304)
[2019-05-06] MEDS: SODIUM BICARB INJ 150 MEQ in DEXTROSE 5% 850 ML IV SCH ×2 (04:30→14:36)
[2019-05-06] MEDS: FUROSEMIDE INJ 100 MG in SODIUM CHLORIDE 0.9% 90 ML IV SCH ×2 (04:30→14:37)
[2019-05-06 04:46] LABS: Lymphocytes 1 % (20-55); Metamyelocytes 1 %; Myelocytes 1 %; Nucleated Red Blood Cells 15 (0-5); Platelet Estimate Decreased; Polychromasia Few; Segmented Neutrophils 95 % (50-85); Total Cells Counted 100
[2019-05-06 05:00] LABS: ABG Base Excess 1.7 MMOL/L (-2.5-2.5); ABG Oxygen Saturation 98.3 % (95-100); ABG PCO2 57.4 MM HG (35-48); ABG PH 7.308 (7.35-7.45); ABG TCO2 27.1 MMOL/L (23-27); Pt O2 Delivery Device Ventilator
[2019-05-06] MEDS: HYDROCORTISONE 100 MG VIAL IV SCH ×3 (06:10→18:37)
[2019-05-06] MEDS: VANCOMYCIN 50 MG/ML 60 ML/BOTTLE PO SCH ×3 (06:16→18:36)
[2019-05-06] MEDS: INSULIN REGULAR 100 UNIT/ML SUBCUT SCH ×3 (06:16→18:59)
[2019-05-06] MEDS: FLUCONAZOLE INJ 400 MG in PREMIX 1 EACH IV SCH (06:16)
[2019-05-06] MEDS: BUDESONIDE 0.5 MG/2 ML NEB RESP TX SCH ×2 (08:40→19:13)
[2019-05-06] MEDS: CISATRACURIUM 200 MG in SODIUM CHLORIDE 0.9% 180 ML IV SCH ×3 (08:48→22:25)
[2019-05-06] MEDS: MENTHOL/ZINC OXIDE OINT 71 GM JAR TOP SCH ×2 (08:49→20:07)
[2019-05-06] MEDS: METOPROLOL TARTRATE 50 MG TABLET PO SCH ×2 (08:49→20:10)
[2019-05-06] MEDS: NYSTATIN POWDER 15 GM BOTTLE TOP SCH ×2 (08:50→20:07)
[2019-05-06] MEDS: PANTOPRAZOLE 40 MG VIAL IV SCH ×2 (08:50→20:10)
[2019-05-06] MEDS: MULTIVITAMIN LIQUID (CENTRUM) 60 ML BOTTLE NG SCH (08:50)
[2019-05-06] MEDS: THIAMINE 200 MG/2 ML VIAL IV SCH ×2 (08:58→20:21)
[2019-05-06] MEDS ORDERED: SODIUM BICARB INJ 150 MEQ in DEXTROSE 5% 850 ML IV SCH (16:13)
[2019-05-06] MEDS: amLODIPine 10 MG TABLET NG SCH (20:10)
[2019-05-07] MEDS: ALBUTEROL/IPRATROPIUM 3 ML NEB RESP TX SCH ×3 (00:17→12:05)
[2019-05-07] MEDS: VANCOMYCIN 50 MG/ML 60 ML/BOTTLE PO SCH ×3 (00:26→11:43)
[2019-05-07] MEDS: INSULIN REGULAR 100 UNIT/ML SUBCUT SCH ×3 (00:26→13:57)
[2019-05-07] MEDS: HYDROCORTISONE 100 MG VIAL IV SCH ×3 (00:28→11:44)
[2019-05-07] MEDS: FUROSEMIDE INJ 100 MG in SODIUM CHLORIDE 0.9% 90 ML IV SCH ×2 (00:32→10:57)
[2019-05-07] MEDS: SODIUM CHLORIDE 0.9% IV SCH ×3 (02:18→12:45)
[2019-05-07] MEDS: KETAMINE IV SCH ×3 (02:18→12:45)
[2019-05-07] MEDS: metroNIDAZOLE 500 MG TABLET PO SCH ×2 (02:19→09:08)
[2019-05-07 03:09] LABS: Allen Test Positive; Pt O2 Delivery Device Ventilator
[2019-05-07 03:11] LABS: ABG Base Excess 11.2 MMOL/L (-2.5-2.5); ABG HCO3 34.9 MMOL/L (20-26); ABG PCO2 50.7 MM HG (35-48); ABG PH 7.464 (7.35-7.45); ABG TCO2 34.3 MMOL/L (23-27)
[2019-05-07] MEDS: MEROPENEM 500 MG in SODIUM CHLORIDE 0.9% 100 ML IV SCH ×2 (03:28→11:42)
[2019-05-07 05:01] LABS: Basophils # 0.1 10*3/uL (0.0-0.2); Basophils % 0.1 % (0.0-0.8); Hematocrit 21.7 VOL% (42.0-52.0); Hemoglobin 7.5 GM/DL (14.0-18.0); Immature Granulocytes % 9.1 %; Immature Granulocytes Absolute 6.05 #; Lymphocytes # 0.5 10*3/uL (1.4-4.0); Lymphocytes % 0.8 % (21.2-54.2); Mean Corpuscular HGB Conc 34.6 GM/DL (32-36); Monocytes % 0.6 % (1.7-12.7); NRBC # 3.11 10*3/uL; Neutrophils % 89.4 % (38.7-73.9); Red Blood Count 2.26 MC/CUMM (3.8-5.5); Red Cell Distribution Width 18.6 % (9.3-17.3)
[2019-05-07 05:04] LABS: White Blood Count 66.2 T/CUMM (4-12)
[2019-05-07 05:05] LABS: Platelet Count 38 T/CUMM (130-400)
[2019-05-07] MEDS: FLUCONAZOLE INJ 400 MG in PREMIX 1 EACH IV SCH (05:18)
[2019-05-07 05:19] LABS: Calcium 6.4 MG/DL (8.5-10.1); Osmolality,Calculated 354.3 MOS/KG (273-304)
[2019-05-07 05:29] LABS: Anisocytosis 1+; Band Neutrophils 2 % (0-10); Hypochromasia 2+; Lymphocytes 2 % (20-55); Macrocytosis 1+; Metamyelocytes 1 %; Nucleated Red Blood Cells 13 (0-5); Ovalocytes 1+; Platelet Estimate Decreased; Segmented Neutrophils 94 % (50-85); Target Cells 2+; Total Cells Counted 100
[2019-05-07] MEDS: POTASSIUM CHLORIDE RIDER 10 MEQ in PREMIX 1 EACH IV PRN (06:20)
[2019-05-07] MEDS: CISATRACURIUM 200 MG in SODIUM CHLORIDE 0.9% 180 ML IV SCH ×2 (06:49→09:23)
[2019-05-07] MEDS: BUDESONIDE 0.5 MG/2 ML NEB RESP TX SCH (07:05)
[2019-05-07] MEDS: METOPROLOL TARTRATE 50 MG TABLET PO SCH (08:00)
[2019-05-07] MEDS: NYSTATIN POWDER 15 GM BOTTLE TOP SCH (08:01)
[2019-05-07] MEDS: PANTOPRAZOLE 40 MG VIAL IV SCH (08:01)
[2019-05-07] MEDS: MENTHOL/ZINC OXIDE OINT 71 GM JAR TOP SCH (08:01)
[2019-05-07] MEDS: MULTIVITAMIN LIQUID (CENTRUM) 60 ML BOTTLE NG SCH (08:01)
[2019-05-07] MEDS: THIAMINE 200 MG/2 ML VIAL IV SCH (08:04)
[2019-05-07] MEDS ORDERED: POTASSIUM CHLORIDE RIDER 20 MEQ in PREMIX 1 EACH IV PRN (11:25)
[2019-05-07] MEDS: MAGNESIUM SULF RIDER 2 GM in PREMIX 1 EACH IV PRN (11:42)
== END 2019-05-07 16:43 | disposition expired | DRG 775 ==
LOC: EDUNIT# → EDBD → N.ED 11:17 → SUPCPDRO 13:46 → SUATTDRO 13:46 → N.EDINP 13:46 → N.ICU 14:44
PROVIDERS: ADMIT Internal Medicine; ATTEND Internal Medicine Geriatric Medicine